=== PATIENT | female | born 1980 | race Caucasian/White ===

== ENCOUNTER 2017-02-20 12:48 | Emergency (ER) | payer MEDICAID ==
[~2017-02-20] VITALS: Wt 75.0 kg
[~2017-02-20 12:48] MED LIST: PREN1TAB62 PO
[2017-02-20] MEDS ORDERED: LIDOCAINE 1% (MDV) 20 ML INJ SC ONE (15:00)
[2017-02-20] MEDS ORDERED: ACETAMINOPHEN 325 MG TAB PO ONE (15:00)
[2017-02-20] MEDS ORDERED: BACI28.34 TOP (15:32)
[2017-02-20 15:58] VITALS: BP 128/69; PULSE 77; RESP 18; TEMP 98
[2017-02-20] MEDS ORDERED: DIPHTH/TET/ACEL PERTUSS (ADULT) 0.5 ML VIAL IM* ONE (16:00)
--- NOTE | 2017-02-20 18:49 | ERD ---
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 The patient is right-hand dominant. The patient is also reportedly 33 weeks . LMP was July 2016. She states she was in the bathtub when she accidentally cut her left fifth finger on a piece of point T Tylenol. Tetanus is not up-to-date. No fevers, chills, tingling in the fingers, loss of consciousness, or other injuries. ROS All systems reviewed and are negative except as per history of present illness. Medications Home Meds Active Scripts Bacitracin* (Bacitracin Zinc Oint*) 28.35 Gm Oint, 1 APPLIC TOP BID, #1 TUB APPLI TO Prov:JUAN KANG PA-C 02/20/17 Reported Medications Vit-Iron Fumarate-FA ( Vitamin Tablet) 1 Each Tablet, 1 TAB PO DAILY, TAB 02/11/15 Allergies Allergies: Coded Allergies: No Known Allergy (Unverified , 02/11/15) PMhx/Soc Hx Alcohol Use: No Hx Substance Use: No Hx Tobacco Use: No Smoking Status: Never smoker Physical Exam Vitals Vital Signs Date Time Temp Pulse Resp B/P Pulse Ox O2 Delivery O2 Flow Rate FiO2 02/20/17 15:58 98.0 77 18 128/69 98 Room Air 02/20/17 12:55 98.0 88 21 133/87 98 Physical Exam Const: Well-appearing, nontoxic female in no acute distress. Head: Atraumatic Eyes: Normal Conjunctiva ENT: Normal External Ears, Nose and Mouth. Neck: Full range of motion..~ No meningismus. Resp: Clear to auscultation bilaterally Cardio: Regular rate and rhythm, no murmurs Abd: Gravid abdomen, soft, non tender, non distended. Normal bowel sounds Skin: There is an approximate 1 cm laceration to the proximal anterior portion of the left fifth finger. Back: No midline or flank tenderness Ext: No cyanosis, or edema Neur: Awake and alert Psych: Normal Mood and Affect Results 24 hrs Current Medications Medications (Trade) Dose Ordered Sig/Kwabena Route PRN Reason Start Time Stop Time Status Last Admin Dose Admin Acetaminophen (Tylenol Tab) 650 mg ONCE ONCE PO 02/20/17 15:00 02/20/17 15:01 DC 02/20/17 15:08 Lidocaine (Xylocaine 1% (Mdv) 20 ml) 20 ml ONCE ONCE SC 02/20/17 15:00 02/20/17 15:01 DC Diphtheria/ Tetanus/Acell Pertussis (Adacel) 0.5 ml ONCE ONCE IM* 02/20/17 16:00 02/20/17 16:00 DC 02/20/17 15:38 Procedures/MDM 36-year-old female presents to the emergency department with complaint of cut to her left fifth finger which occurred at approximately 12:20 PM today. There appears to be no involvement of the tendon or the ligaments. I do not believe that imaging is required at this time. Laceration repair was done by me without incident. The patient is also incidentally 33 weeks , but she has no vaginal bleeding, vaginal cramping, or other complaints. Laceration Repair by me: Anesthesia: 1% lidocaine locally Location: Anterior, proximal portion of the left fifth finger Tendon/Joint/Nerves: No injury Foreign body: None detected after copious irrigation and exploration Technique: 4x4-0 prolene, Simple Interrupted Sutures Complexity: No subcutaneous sutures/mucosal repair/ edge excision Post Closure Length: 1 cm Patient's bleeding was easily controlled in the department and there is no indication of anemia. No evidence of compartment syndrome, neurologic injury, vascular injury, open joint, tendon laceration, or foreign body. Patient is appropriate for outpatient follow up. 48 hour wound check. Scar minimization instructions given. Departure Diagnosis: Primary Impression: Laceration Condition: Fair Patient Instructions: Laceration, Hand Referrals: [facility] YOU HAVE RECEIVED A MEDICAL SCREENING EXAM AND THE RESULTS INDICATE THAT YOU DO NOT HAVE A CONDITION THAT REQUIRES URGENT TREATMENT IN THE EMERGENCY DEPARTMENT. FURTHER EVALUATION AND TREATMENT OF YOUR CONDITION CAN WAIT UNTIL YOU ARE SEEN IN YOUR DOCTORS OFFICE WITHIN THE NEXT 1-2 DAYS. IT IS YOUR RESPONSIBILITY TO MAKE AN APPOINTMENT FOR FOLOW-UP CARE. IF YOU HAVE A PRIMARY DOCTOR --you should call your primary doctor and schedule an appointment IF YOU DO NOT HAVE A PRIMARY DOCTOR YOU CAN CALL OUR PHYSICIAN REFERRAL HOTLINE AT IF YOU CAN NOT AFFORD TO SEE A PHYSICIAN YOU CAN CHOSE FROM THE FOLLOWING COMMUNITY CLINICS [facility] [address] [facility] [address] [facility] [address] [facility] [address] [facility] [place] [address] [facility] [facility] [address] [place] Additional Instructions: Regrese en 7-10 kimball por removar puntadas. No mas mejor en 2-3 kimball, regresar. Mas peor en 24 horas, regresear rapidamente. Ir a doctor primario in 5-7 kimball. Usar instrucciones cuando joselin medicamento. JUAN KANG PA-C Feb 20, 2017 18:49
== END 2017-02-20 15:58 | disposition home or self-care (01) ==
LOC: FTE 12:48
DX: S61.217A Laceration without foreign body of left little finger without damage to nail, initial encounter (principal); W22.8XXA Striking against or struck by other objects, initial encounter; Y92.9 Unspecified place or not applicable; Z23 Encounter for immunization
CPT/HCPCS: 12001; 90471; 90715; Z7502; Z7610

== ENCOUNTER 2017-04-03 14:32 | Inpatient (IN) | payer MEDICAID ==
[~2017-04-03] VITALS: Ht 157.5 cm; Wt 78.2 kg
[~2017-04-03 14:32] MED LIST changes: +BACI28.34 TOP
[2017-04-03 16:09] VITALS: Ht 157.5 cm; Wt 78.2 kg
[2017-04-03 16:15] LABS: BASOPHILS % 0.2 % (0.0-2.0); EOSINOPHILS % 0.8 % (0.0-7.0); HEMATOCRIT 33.9 % (37.0-47.0); HEMOGLOBIN 11.8 g/dl (12.0-16.0); LYMPHOCYTES # 0.8 10^3/ul (0.8-2.9); LYMPHOCYTES % 16.8 % (15.0-51.0); MEAN CORPUSCULAR HEMOGLOBIN 31.7 pg (29.0-33.0); MEAN CORPUSCULAR HGB CONC 34.8 g/dl (32.0-37.0); MEAN CORPUSCULAR VOLUME 91.1 fl (82.0-101.0); MONOCYTE # 0.4 10^3/ul (0.3-0.9); MONOCYTES % 8.4 % (0.0-11.0); NEUTROPHIL # 3.5 10^3/ul (1.6-7.5); NEUTROPHILS % 73.4 % (39.0-77.0); PLATELET COUNT 176 10^3/UL (140-415); RED BLOOD COUNT 3.72 10^6/ul (4.20-5.40); WHITE BLOOD COUNT 4.8 10^3/ul (4.8-10.8)
[2017-04-03] MEDS ORDERED: MISOPROSTOL 200 MCG TAB PR PRN ×2 (16:30→23:00)
[2017-04-03] MEDS ORDERED: CARBOPROST 250 MCG INJ IM PRN ×2 (16:30→23:00)
[2017-04-03] MEDS ORDERED: METHYLERGONOVINE 0.2 MG INJ IM PRN ×2 (16:30→23:00)
[2017-04-03] MEDS ORDERED: OXYTOCIN 30 UNITS/LR 500 ML IV PRN ×2 (16:30→23:00)
[2017-04-03] MEDS ORDERED: CEFAZOLIN 2 GM/50 ML (PMX) 50 ML IV SCH (16:30)
[2017-04-03 16:37] LABS: INR 0.95; PROTIME 12.7 Sec (12.2-14.2)
[2017-04-03 16:38] LABS: PARTIAL THROMBOPLASTIN TIME 27.5 Sec (25.0-35.0)
[2017-04-03] MEDS ORDERED: METOCLOPRAMIDE 10 MG INJ IM ONE (17:30)
[2017-04-03] MEDS ORDERED: CITRIC ACID/NA CITRATE 30 ML CUP PO ONE ×2 (17:30→18:00)
[2017-04-03] MEDS ORDERED: METOCLOPRAMIDE 10 MG INJ ONE (17:39)
[2017-04-03] MEDS ORDERED: CITRIC ACID/NA CITRATE 30 ML CUP ONE (17:40)
[2017-04-03] MEDS ORDERED: LACTATED RINGER'S 1,000 ML IV ONE (17:59)
[2017-04-03] MEDS ORDERED: FAMOTIDINE 20 MG INJ IV ONE (18:00)
[2017-04-03] MEDS ORDERED: METOCLOPRAMIDE 10 MG INJ IV ONE (18:00)
[2017-04-03] MEDS ORDERED: LACTATED RINGER'S 1,000 ML IV SCH (19:16)
[2017-04-03] MEDS ORDERED: morphine SULFATE/PF (10 MG/10 ML) INJ ONE (20:16)
[2017-04-03] MEDS ORDERED: FENTAnyl 50 MCG/ML VIAL ONE (20:16)
[2017-04-03] MEDS ORDERED: PHENYLephrine (100 MCG/ML) 5ML SYG ONE (20:28)
[2017-04-03] MEDS ORDERED: EPHEDrine SULFATE 50 MG/5 ML SYG ONE (20:53)
[2017-04-03] MEDS ORDERED: OXYTOCIN 30 UNITS/LR 500 ML IV ONE ×2 (20:53→21:48)
[2017-04-03] MEDS ORDERED: PROCHLORPERAZINE 10 MG INJ IV PRN (21:00)
[2017-04-03] MEDS ORDERED: KETOROLAC 30 MG INJ IV PRN (21:00)
[2017-04-03] MEDS ORDERED: DIPHENHYDRAMINE 50 MG INJ IV PRN ×2 (21:00)
[2017-04-03] MEDS ORDERED: HYDROmorphONE (0.2 MG/ML) 10ML SYG IV PRN (21:00)
[2017-04-03] MEDS ORDERED: HYDROmorphONE 1 MG/ML SYG IV PRN ×2 (21:00)
[2017-04-03] MEDS ORDERED: NALOXONE (0.4 MG/ML) INJ IV PRN (21:00)
[2017-04-03] MEDS ORDERED: ZOLPIDEM 5 MG TAB PO PRN (21:00)
[2017-04-03] MEDS ORDERED: MEPERIDINE 25 MG INJ IV PRN (21:00)
[2017-04-03] MEDS ORDERED: FENTAnyl 50 MCG/ML VIAL IV PRN (21:00)
[2017-04-03] MEDS ORDERED: ONDANSETRON 4 MG INJ IV PRN ×2 (21:00)
--- NOTE | 2017-04-03 21:40 | PREOPHP ---
DATE OF ADMISSION: 04/03/2017 HISTORY OF PRESENT ILLNESS: A 36-year-old female, 4, para 3, estimated date of delivery 04/10/2017 at 39 weeks gestation admitted for repeat section. Also, the patient desired surgical sterilization. PAST MEDICAL HISTORY: Unremarkable. PAST SURGICAL HISTORY: section. ALLERGIES: NO KNOWN ALLERGIES. FAMILY HISTORY: Noncontributory. PHYSICAL EXAMINATION: GENERAL APPEARANCE: The patient is afebrile. VITAL SIGNS: Stable. HEENT: Within normal limits. ABDOMEN: Soft, nontender, and gravid. NEUROLOGIC: Within normal limits. IMPRESSION: 1. at 39 weeks with previous section. The patient does not desire a trial of labor. 2. Voluntary sterilization. PLAN: Repeat section and bilateral tubal ligation. Risks, benefits, and alternatives of the procedures were explained to the patient. The patient has been counseled about all of her contraceptive options including all methods of sterilization. It was explained to the patient that with bilateral tubal ligation there is a chance of failure resulting in ectopic and/or intrauterine . After counseling the patient said she understood and gave full consent for the procedures. Dictated By: Keyon Marrero MD /liane/finesse /Document#: [id number]
[2017-04-03] MEDS ORDERED: OXYTOCIN 30 UNITS/LR 500 ML IV SCH (22:00)
[2017-04-03] MEDS: OXYTOCIN 30 UNITS/LR 500 ML IV SCH (22:51)
[2017-04-03] MEDS: LACTATED RINGER'S 1,000 ML IV SCH (22:51)
[2017-04-03] MEDS ORDERED: LANOLIN 7 GM TUBE TOP PRN (23:00)
[2017-04-03] MEDS ORDERED: OXYCODONE/ACETAMINOPHEN (5/325) TAB PO PRN (23:00)
[2017-04-03] MEDS: KETOROLAC 30 MG INJ IV PRN (23:47)
[2017-04-04 00:30] VITALS: BP 122/64; PULSE 59; RESP 18
[2017-04-04] MEDS: OXYTOCIN 30 UNITS/LR 500 ML IV SCH (03:15)
[2017-04-04 04:00] VITALS: BP 103/65; PULSE 69; RESP 18
[2017-04-04] MEDS: KETOROLAC 30 MG INJ IV PRN ×3 (05:40→18:23)
--- NOTE | 2017-04-04 05:58 | OPR ---
DATE OF OPERATION: 04/03/2017 PREOPERATIVE DIAGNOSIS: at 39 weeks with previous section, voluntary sterilization. POSTOPERATIVE DIAGNOSIS: at 39 weeks with previous section, voluntary sterilization. OPERATION PERFORMED: 1. Repeat low transverse section. 2. Bilateral tubal ligation. SURGEON: Keyon Marrero MD HEALTH PRACTICE MANAGER: ANESTHESIA: Spinal. ANESTHESIOLOGIST: OPERATIVE PROCEDURE: Patient was taken to the operating room, placed on the operating table. After successful spinal anesthesia was given, the patient was placed in supine position. The area was prepared and draped in the usual sterile fashion. Spinal anesthesia was tested and was satisfactory. Using scalpel, Pfannenstiel incision was made about 2 fingerbreadths above the symphysis pubis. The incision was carried to the fascia. The fascia was incised and extended bilaterally with the Cavazos scissors. Trocars were used to separate the fascia from the muscle. The muscle was dissected down to peritoneum. The peritoneum was secured with 2 Breanna's and incised with Metzenbaum scissors. Using a scalpel, a small transverse incision was made on the lower segment of the uterus. Upon entering the uterine cavity bandage scissors were inserted to extend the incision bilaterally curved up. The baby was delivered from cephalic presentation. After suctioned clear of amniotic fluid the baby was handed off to the team in attendance. Apgars were 8 and 9. The placenta was delivered without difficulty. The uterus was closed with number 1 Monocryl continuous lock. After assuring hemostasis, both ovaries and tubes were inspected. All looked normal. The right fallopian tube was grasped with [place] clamp. Using 0 plain suture ligature, a 5 cm segment of the right fallopian tube was doubly ligated. Using Metzenbaum scissors, a portion of the right fallopian tube above the ligated area was excised and sent to Pathology. The same procedure was repeated on the left fallopian tube. After assuring hemostasis, the peritoneal cavity was irrigated with warm saline. The peritoneum was closed with 2-0 Vicryl continuous, the muscle was reapproximated with 0 chromic. The fascia was closed with number 1 Vicryl continuous in 2 segments. The subcutaneous tissue was reapproximated with 2-0 plain. The skin was closed with mercy. ESTIMATED BLOOD LOSS: 700 mL. COUNTS: All counts were correct. Dictated By: Keyon Marrero MD /liane/aimee /Document#: [id number]
[2017-04-04 08:00] VITALS: BP 105/72; PULSE 65; RESP 16
[2017-04-04] MEDS: SENNA/DOCUSATE NA (8.6MG/50MG) TAB PO SCH ×2 (08:22→22:12)
[2017-04-04] MEDS: LACTATED RINGER'S 1,000 ML IV SCH ×2 (08:23→16:22)
[2017-04-04 08:46] LABS: BASOPHILS % 0.2 % (0.0-2.0); EOSINOPHILS % 0.3 % (0.0-7.0); HEMATOCRIT 31.2 % (37.0-47.0); HEMOGLOBIN 10.4 g/dl (12.0-16.0); LYMPHOCYTES # 0.6 10^3/ul (0.8-2.9); MEAN CORPUSCULAR HGB CONC 33.3 g/dl (32.0-37.0); MEAN CORPUSCULAR VOLUME 92.9 fl (82.0-101.0); MEAN PLATELET VOLUME 10.3 fl (7.4-10.4); MONOCYTE # 0.5 10^3/ul (0.3-0.9); NEUTROPHIL # 4.6 10^3/ul (1.6-7.5); NEUTROPHILS % 80.2 % (39.0-77.0); PLATELET COUNT 144 10^3/UL (140-415); RED BLOOD COUNT 3.36 10^6/ul (4.20-5.40); RED CELL DISTRIBUTION WIDTH 13.2 % (11.5-14.5); WHITE BLOOD COUNT 5.7 10^3/ul (4.8-10.8)
[2017-04-04 12:30] VITALS: BP 90/51; PULSE 66; RESP 16
[2017-04-04] MEDS: IBUPROFEN 800 MG TAB PO SCH ×2 (14:00→22:00)
[2017-04-04 16:15] VITALS: BP 112/64; PULSE 67; RESP 16
[2017-04-04 20:00] VITALS: BP 107/86; PULSE 66; RESP 17
--- NOTE | 2017-04-04 20:28 | QN ---
Documentation Comment No complaint Afebrile VSS Abdomen soft ND POD #1 Stable Ambulate Advance diet. GOMEZ FERNANDEZ MD Apr 04, 2017 20:28
[2017-04-04] MEDS: OXYCODONE/ACETAMINOPHEN (5/325) TAB PO PRN (22:12)
--- NOTE | 2017-04-05 03:02 | QN ---
Documentation Comment No complaint Afebrile VSS Abdomen soft POD #2 stable Continue present care. GOMEZ FERNANDEZ MD Apr 05, 2017 03:02
[2017-04-05 04:00] VITALS: BP 115/72; PULSE 73; RESP 18
[2017-04-05] MEDS: IBUPROFEN 800 MG TAB PO SCH ×3 (06:31→21:43)
[2017-04-05] MEDS: SENNA/DOCUSATE NA (8.6MG/50MG) TAB PO SCH ×2 (09:16→21:43)
[2017-04-05 09:22] VITALS: BP 115/63; PULSE 73; RESP 19
[2017-04-05 16:03] VITALS: BP 107/66; PULSE 73; RESP 18
[2017-04-05 20:00] VITALS: BP 117/75; PULSE 75; RESP 18
[2017-04-05] MEDS: OXYCODONE/ACETAMINOPHEN (5/325) TAB PO PRN (20:10)
[2017-04-06 04:00] VITALS: BP 108/75; PULSE 63; RESP 18
[2017-04-06] MEDS: IBUPROFEN 800 MG TAB PO SCH ×2 (05:45→13:54)
[2017-04-06 08:30] VITALS: BP 112/71; PULSE 62; RESP 14
[2017-04-06] MEDS ORDERED: DIPHTH/TET/ACEL PERTUSS (ADULT) 0.5 ML VIAL IM* ONE (09:00)
[2017-04-06] MEDS: SENNA/DOCUSATE NA (8.6MG/50MG) TAB PO SCH (09:33)
[2017-04-06] MEDS ORDERED: IBUP800T25 PO (15:05)
--- NOTE | 2017-04-06 15:06 | DS ---
Date/Time of Note Date/Time of Note DATE: 04/06/17 TIME: 15:06 Obstetrical Discharge Record Final Diagnosis Final Diagnosis: Term delivered Section Section: Repeat Condition on Discharge Physical Assessment Voiding: Yes Bowel Movement: Yes Breast: Soft, non-tender Fundus: Firm Abdomen and Incision: Incision intact Calf Tenderness: No Patient Condition: Stable GOMEZ FERNANDEZ MD Apr 06, 2017 15:06
[2017-04-06 16:00] VITALS: BP 125/78; PULSE 77; RESP 16
== END 2017-04-06 17:30 | disposition home or self-care (01) | DRG 766 ==
LOC: L-D 14:50 → PP1 04-04 00:33
PROVIDERS: ADMIT Obstetrics & Gynecology; ATTEND Obstetrics & Gynecology
PROC: 0UL70ZZ Occlusion of Bilateral Fallopian Tubes, Open Approach (ICD-10-PCS; 2017-04-03)
PROC: 10D00Z1 Extraction of Products of Conception, Low, Open Approach (ICD-10-PCS; principal; 2017-04-03 18:45)
DX: O34.211 Maternal care for low transverse scar from previous cesarean delivery (principal); Z30.2 Encounter for sterilization; Z3A.39 39 weeks gestation of pregnancy; Z37.0 Single live birth
CPT/HCPCS: 85025; 85610; 85730; 86592; 86850; 86900; 86901; 87340; 88302; 90715; 94760; 99464; J0690; J1885; J2274; J2370; J2405; J2590; J2765; J3010; J7120

== ENCOUNTER 2017-05-28 14:27 | Inpatient (IN) | payer MEDICAID ==
[~2017-05-28] VITALS: Ht 154.9 cm; Wt 70.2 kg
[~2017-05-28 14:27] MED LIST changes: -BACI28.34 TOP; +IBUP800T25 PO
[2017-05-28] MEDS ORDERED: ONDANSETRON 4 MG INJ IV STA ×2 (15:13→17:11)
[2017-05-28] MEDS ORDERED: KETOROLAC 30 MG INJ IV STA (15:13)
[2017-05-28] MEDS ORDERED: SOD CHLORIDE 0.9% 1,000 ML IV STA (15:13)
[2017-05-28 15:49] LABS: EOSINOPHILS % 0.5 % (0.0-7.0); HEMATOCRIT 38.8 % (37.0-47.0); HEMOGLOBIN 12.8 g/dl (12.0-16.0); LYMPHOCYTES # 0.9 10^3/ul (0.8-2.9); LYMPHOCYTES % 11.6 % (15.0-51.0); MEAN CORPUSCULAR HEMOGLOBIN 29.8 pg (29.0-33.0); MEAN CORPUSCULAR VOLUME 90.2 fl (82.0-101.0); MEAN PLATELET VOLUME 9.4 fl (7.4-10.4); MONOCYTE # 0.5 10^3/ul (0.3-0.9); MONOCYTES % 6.1 % (0.0-11.0); NEUTROPHIL # 6.5 10^3/ul (1.6-7.5); NEUTROPHILS % 81.4 % (39.0-77.0); PLATELET COUNT 241 10^3/UL (140-415); RED CELL DISTRIBUTION WIDTH 12.3 % (11.5-14.5)
[2017-05-28 15:59] LABS: ADD UMIC YES; UR ASCORBIC ACID NEGATIVE (NEGATIVE); UR BACTERIA FEW /HPF (NONE SEEN); UR BILIRUBIN (Dip) NEGATIVE (NEGATIVE); UR BLOOD (Dip) NEGATIVE (NEGATIVE); UR CLARITY SLIGHTLY CLOUDY (CLEAR); UR COLOR AMBER (YELLOW); UR GLUCOSE (Dip) NEGATIVE (NEGATIVE); UR KETONES (Dip) NEGATIVE (NEGATIVE); UR LEUKOCYTE ESTERASE (Dip) 1+ Leu/ul (NEGATIVE); UR MUCUS MANY /HPF (NONE SEEN); UR NITRITE (Dip) NEGATIVE (NEGATIVE); UR RBC 17 /HPF (0-5); UR SPECIFIC GRAVITY (Dip) 1.028 (1.003-1.030); UR SQUAMOUS EPITHELIAL CELL FEW /HPF (FEW); UR TOTAL PROTEIN (Dip) 1+ mg/dl (NEGATIVE); UR UROBILINOGEN (Dip) 1+ mg/dL (NEGATIVE)
--- NOTE | 2017-05-28 16:03 | RADRPT ---
PROCEDURE: US Abdomen Limited . CLINICAL INDICATION: Abdominal pain TECHNIQUE: Multiple real-time images were acquired of the patient's right upper quadrant abdomen u tilizing a high resolution transducer. COMPARISON: None FINDINGS: The liver measures 12.2 cm and demonstrates a normal echogenicity. The gallbladder is filled with a moderate amount of bile. Multiple calcified stones are seen in the gallbladder. The largest measure s up to approximately 2.4 cm in the gallbladder neck. The gallbladder wall is not thickened at 2.8 m m. No pericholecystic fluid is noted. The common bile duct measures 6.2 mm in diameter. The visuali zed portions of the proximal pancreas are unremarkable. The tail of the pancreas is not well visuali zed. Antegrade flow is seen in the portal vein. Right kidney measures 9.0 cm. Right kidney demonstrates a normal echogenicity. No hydronephrosis, masses or stones are noted. IMPRESSION: Cholelithiasis. Mildly dilated common bile duct. Distal common bile duct obstruction is not excluded. If further baudilio racterization is needed MRCP or ERCP is recommended. Tail of the pancreas not well visualized. If characterization of this structure is needed repeat exa m or CT/MRI is recommended. RPTAT: AA .Jordan Gonzalez MD, Date Time Electronically viewed and signed by .Jordan Gonzalez MD, on 05/28/2017 16:02 .P/
[2017-05-28 16:10] LABS: ALBUMIN 4.4 g/dl (3.3-4.9); ALBUMIN/GLOBULIN RATIO 1.12; BILIRUBIN,INDIRECT 0.6 mg/dl (0-1.1); BILIRUBIN,TOTAL 0.6 mg/dl (0.2-1.3); CALCIUM 9.5 mg/dl (8.4-10.2); CREATININE 0.63 mg/dl (0.44-1.00); TOTAL PROTEIN 8.3 g/dl (6.1-8.1)
--- NOTE | 2017-05-28 16:17 | RADRPT ---
PROCEDURE: US Pelvis. CLINICAL INDICATION: Pelvic pain. Irregular menses. TECHNIQUE: The pelvis was evaluated with transabdominal and transvaginal sonography in the axial a nd sagittal planes. COMPARISON: Pelvic ultrasound dated 11/23/2013. FINDINGS: The uterus is retroverted measuring 8.1 x 4.5 x 7.2 cm. There is no uterine enlargement or mass. The endometrium is normal measuring 5.8 mm. The ovaries are not visualized. There is no other pelvic ma ss or free fluid. IMPRESSION: 1. Unremarkable appearing retroverted uterus. 2. Normal endometrium. 3. Ovaries not visualized. 4. Otherwise normal pelvic ultrasound. RPTAT: QQ .Michael Lowry MD, MD Date Time Electronically viewed and signed by .Michael Lowry MD, on 05/28/2017 16:17 .R/
[2017-05-28] MEDS ORDERED: HYDROmorphONE 1 MG/ML SYG IV STA (17:11)
--- NOTE | 2017-05-28 19:15 | ERA ---
ER Documentation Chief Complaint Date/Time DATE: 05/28/17 TIME: 19:12 Chief Complaint ap with nausea since last night HPI Is a 36-year-old female who is complaining of 2 days of epigastric pain with nausea vomiting. She is just had a delivery in the beginning of April she thinks she has gallstones as diagnosis before. Her vomit is nonbilious nonbloody. No diarrhea. The pain is described as sharp and crampy in the upper quadrant and radiates to the back some. Pain was severe and is currently mild to moderate. ROS All systems reviewed and are negative except as per history of present illness. Medications Home Meds Active Scripts Ibuprofen* (Ibuprofen*) 800 Mg Tablet, 800 MG PO Q8 Y for PAIN, #30 TAB Prov:GOMEZ FERNANDEZ MD 04/06/17 Reported Medications Vit-Iron Fumarate-FA ( Vitamin Tablet) 1 Each Tablet, 1 TAB PO DAILY, TAB 02/11/15 Allergies Allergies: Coded Allergies: No Known Allergy (Unverified , 02/11/15) PMhx/Soc Medical and Surgical Hx: pt denies Medical Hx, pt denies Surgical Hx Hx Alcohol Use: No Hx Substance Use: No Hx Tobacco Use: No FmHx Family History: No coronary disease Physical Exam Vitals Vital Signs Date Time Temp Pulse Resp B/P Pulse Ox O2 Delivery O2 Flow Rate FiO2 05/28/17 14:31 98.3 64 18 115/64 99 Physical Exam Const: Well-developed, well-nourished Head: Atraumatic, normocephalic Eyes: Normal Conjunctiva, PERRLA, EOMI, normal sclera, no nystagmus ENT: Normal External Ears, Nose and Mouth, moist mucus membranes. Neck: Full range of motion. No meningismus, no lymphadenopathy. Resp: Clear to auscultation bilaterally, no wheezing, rhonchi, rales Cardio: Regular rate and rhythm, no murmurs, S1 S2 present Abd: Soft, epigastric and right upper quadrant tenderness, there is also some mild tenderness in the right mid abdomen non distended. Normal bowel sounds, no guarding or rebound, no pulsitile abdominal masses or bruits Skin: No petechiae or rashes, no ecchymosis , no maculopapular rash Back: No midline or flank tenderness Ext: No cyanosis, or edema, FROM x 4, normal inspection, neurovascularly intact x 4 Neur: Awake and alert, STR 5/5 x 4, sensation intact x 4, no focal findings, cerebellum intact Psych: Normal Mood and Affect Result Diagram: 05/28/17 1535 05/28/17 1535 Results 24 hrs Laboratory Tests Test 05/28/17 15:35 White Blood Count 8.010^3/ul Red Blood Count 4.3010^6/ul Hemoglobin 12.8g/dl Hematocrit 38.8% Mean Corpuscular Volume 90.2fl Mean Corpuscular Hemoglobin 29.8pg Mean Corpuscular Hemoglobin Concent 33.0g/dl Red Cell Distribution Width 12.3% Platelet Count 99974^3/UL Mean Platelet Volume 9.4fl Neutrophils % 81.4% Lymphocytes % 11.6% Monocytes % 6.1% Eosinophils % 0.5% Basophils % 0.0% Nucleated Red Blood Cells % 0.0/100WBC Neutrophils # 6.510^3/ul Lymphocytes # 0.910^3/ul Monocytes # 0.510^3/ul Eosinophils # 0.010^3/ul Basophils # 0.010^3/ul Nucleated Red Blood Cells # 0.010^3/ul Urine Color TIANA Urine Clarity SLIGHTLY CLOUDY Urine pH 8.0 Urine Specific [place] 1.028 Urine Ketones NEGATIVEmg/dL Urine Nitrite NEGATIVEmg/dL Urine Bilirubin NEGATIVEmg/dL Urine Urobilinogen 1+mg/dL Urine Leukocyte Esterase 1+Emily/ul Urine Microscopic RBC 17/HPF Urine Microscopic WBC 4/HPF Urine Squamous Epithelial Cells FEW/HPF Urine Bacteria FEW/HPF Urine Mucus MANY/HPF Urine Hemoglobin NEGATIVEmg/dL Urine Glucose NEGATIVEmg/dL Urine Total Protein 1+mg/dl Sodium Level 142mmol/L Potassium Level 4.0mmol/L Chloride Level 104mmol/L Carbon Dioxide Level 26mmol/L Anion Gap 16 Blood Urea Nitrogen 12mg/dl Creatinine 0.63mg/dl Glucose Level 89mg/dl Calcium Level 9.5mg/dl Total Bilirubin 0.6mg/dl Direct Bilirubin 0.00mg/dl Indirect Bilirubin 0.6mg/dl Aspartate Amino Transf (AST/SGOT) 121IU/L Alanine Aminotransferase (ALT/SGPT) 111IU/L Alkaline Phosphatase 110IU/L Total Protein 8.3g/dl Albumin 4.4g/dl Globulin 3.90g/dl Albumin/Globulin Ratio 1.12 Lipase 30432Y/L Beta HCG, Quantitative < 2.4mIU/ml Current Medications Medications (Trade) Dose Ordered Sig/Kwabena Route PRN Reason Start Time Stop Time Status Last Admin Dose Admin Sodium Chloride (NS) 1,000 ml @ 1,000 mls/hr Q1H STAT IV 05/28/17 15:13 05/28/17 16:12 DC 05/28/17 15:45 Ondansetron HCl (Zofran Inj) 4 mg ONCE STAT IV 05/28/17 15:13 05/28/17 15:15 DC 05/28/17 15:45 Ketorolac Tromethamine (Toradol) 30 mg ONCE STAT IV 05/28/17 15:13 05/28/17 15:15 DC 05/28/17 15:45 Hydromorphone HCl (Dilaudid) 1 mg ONCE STAT IV 05/28/17 17:11 05/28/17 17:12 DC 05/28/17 18:16 Ondansetron HCl 4 mg 4 mg ONCE STAT IV 05/28/17 17:11 05/28/17 17:12 DC 05/28/17 18:17 Sodium Chloride (NS) 1,000 ml @ 80 mls/hr [id number] IV 05/28/17 19:09 05/29/17 07:38 Ondansetron HCl (Zofran Inj) 4 mg BRIDGE ORDER PRN IV NAUSEA AND/OR VOMITING 05/28/17 19:30 05/29/17 19:29 Acetaminophen (Tylenol Tab) 650 mg ER BRIDGE PRN PO MILD PAIN/FEVER 05/28/17 19:30 05/29/17 19:29 Procedures/MDM PROCEDURE: US Abdomen Limited . CLINICAL INDICATION: Abdominal pain TECHNIQUE: Multiple real-time images were acquired of the patient's right upper quadrant abdomen utilizing a high resolution transducer. COMPARISON: None FINDINGS: The liver measures 12.2 cm and demonstrates a normal echogenicity. The gallbladder is filled with a moderate amount of bile. Multiple calcified stones are seen in the gallbladder. The largest measures up to approximately 2.4 cm in the gallbladder neck. The gallbladder wall is not thickened at 2.8 mm. No pericholecystic fluid is noted. The common bile duct measures 6.2 mm in diameter. The visualized portions of the proximal pancreas are unremarkable. The tail of the pancreas is not well visualized. Antegrade flow is seen in the portal vein. Right kidney measures 9.0 cm. Right kidney demonstrates a normal echogenicity. No hydronephrosis, masses or stones are noted. IMPRESSION: Cholelithiasis. Mildly dilated common bile duct. Distal common bile duct obstruction is not excluded. If further characterization is needed MRCP or ERCP is recommended. Tail of the pancreas not well visualized. If characterization of this structure is needed repeat exam or CT/MRI is recommended. RPTAT: AA .Jordan Gonzalez MD, Date Time Electronically viewed and signed by .Jordan Gonzalez MD, on 05/28/2017 16:02 .P/ CC: LOUIS CLARK PA-C Has elevated liver function test and lipase of 14,000. Note The ultrasound shows common bile duct 6.2. Patient has gallstone pancreatitis we will admit. I spoke with Dr. Bindu ding and Dr. Bain's consultation. Patient will need MRCP Departure Diagnosis: Primary Impression: Gallstone pancreatitis Condition: Stable CAMILA TRIANA DO May 28, 2017 19:15
[2017-05-28] MEDS ORDERED: ACETAMINOPHEN 325 MG TAB PO PRN (19:30)
[2017-05-28] MEDS ORDERED: ONDANSETRON 4 MG INJ IV PRN (19:30)
[2017-05-28 20:45] VITALS: BP 107/63; RESP 20
[2017-05-28] MEDS: SOD CHLORIDE 0.9% 1,000 ML IV SCH ×2 (21:16→21:54)
[2017-05-28 21:30] VITALS: Ht 154.9 cm; Wt 70.2 kg
[2017-05-28] MEDS: morphine 4 MG/ML VIAL IV PRN (21:53)
[2017-05-28] MEDS: DEXTROSE 5%-0.45% NACL 1,000 ML IV SCH (21:57)
[2017-05-28 23:12] LABS: BASOPHILS % 0.2 % (0.0-2.0); EOSINOPHILS # 0.1 10^3/ul (0.0-0.5); EOSINOPHILS % 1.6 % (0.0-7.0); HEMATOCRIT 33.5 % (37.0-47.0); HEMOGLOBIN 10.9 g/dl (12.0-16.0); LYMPHOCYTES # 1.2 10^3/ul (0.8-2.9); LYMPHOCYTES % 18.8 % (15.0-51.0); MEAN CORPUSCULAR HEMOGLOBIN 29.5 pg (29.0-33.0); MEAN CORPUSCULAR HGB CONC 32.5 g/dl (32.0-37.0); MEAN CORPUSCULAR VOLUME 90.5 fl (82.0-101.0); MEAN PLATELET VOLUME 9.2 fl (7.4-10.4); MONOCYTE # 0.5 10^3/ul (0.3-0.9); MONOCYTES % 7.3 % (0.0-11.0); NEUTROPHIL # 4.6 10^3/ul (1.6-7.5); NEUTROPHILS % 71.8 % (39.0-77.0); PLATELET COUNT 187 10^3/UL (140-415); RED CELL DISTRIBUTION WIDTH 12.3 % (11.5-14.5); WHITE BLOOD COUNT 6.4 10^3/ul (4.8-10.8)
--- NOTE | 2017-05-28 23:15 | CONS ---
Date/Time of Note Date/Time of Note DATE: 05/28/17 TIME: 23:02 Assessment/Plan Assessment/Plan Chief Complaint/Hosp Course 1. Abdominal pain with Cholelithiasis and Dilated CBD (? Choledocholithiasis) and Pancreatitis -npo -ivf -abx -mrcp -gi consult -eventual lap branden 2. Dilated CBD with Transaminitis, ? Choledocholithiasis -as above 3. Pancreatitis probably 2nd Gallstones -as above 4. BMI 29 -diet and exercise optimization Thank you very much for consulting me in this patient's care, Problems: Consultation Date/Type/Reason Admit Date/Time May 28, 2017 at 19:10 Date of Consultation: May 28, 2017 Type of Consultation: Gen Surgical Reason for Consultation Abdominal pain Dilated CBD Cholelithiasis Transaminitis Pancreatitis Recent cesarian BMI 29 Referring Provider: CAMILA TRIANA DO Hx of Present Illness Brynn Segal is a 36-year-old female with know gallstones and s/p c/s 04/18 who is complaining of 2 days of epigastric & rup sharp & crampy pain with radiation to her back. She has nausea and nonbloody nonbilious vomiting. Denies any bowel changes. No color change of skin, eyes, urine, or stool. No dysuria or vaginal dc. No trauma or sick contacts. Her w/u has identified gallstone with dilated cbd and abnl lfts and pancreatic enzymes. She is being admitted and surgical consult is obtained for further evaluation and treatment. Constitutional: No chills, No diaphoresis, No febrile Eyes: No discharge, No redness ENT: No congestion, No dysphagia, No sore throat Respiratory: No cough, No shortness of breath Cardiovascular: No chest pain, No edema, No lightheadedness Gastrointestinal: flatus, nausea, passing stool, vomiting, No blood, No diarrhea Musculoskeletal: back pain, No bone/joint pain, No neck pain, No restricted range of motion Skin: No bruising, No erythema, No pruritis Neurologic: No confusion, No headache, No syncope Endocrine: No polydypsia, No polyuria Lymphatic: No adenopathy, No tender nodes Psychological: nl mood/affect, No confusion Immunologic: No pruritis, No rhinitis Past Medical History Abdominal pain Dilated CBD Cholelithiasis Transaminitis Pancreatitis Recent cesarian BMI 29 Past Surgical History c/s and tubal ligation 04/18 Family History Significant Family History: heart disease Social History 4 kids Alcohol Use: occasionally Smoking Status: Never smoker Drug Use: none Exam/Review of Systems Vital Signs Vitals Vital Signs Date Time Temp Pulse Resp B/P Pulse Ox O2 Delivery O2 Flow Rate FiO2 05/28/17 20:21 60 101/64 97 Room Air 05/28/17 14:31 98.3 18 Exam Constitutional: alert, obese, oriented, No distress Psych: nl mood/affect, No anxiety, No confusion Head: atraumatic, normocephalic, No hematomas Eyes: EOMI, PERRL, nl sclera, No icteric ENMT: mucosa pink and moist, nl external ears & nose, nl lips & teeth Neck: non-tender, supple, No jvd Respiratory: normal air movement, No congested cough, No labored breathing Cardiovascular: regular rate and rhythm, No edema Gastrointestinal: soft, tender (min epigastric and ruq without murphys), No distended, No rebound or guarding Musculoskeletal: nl extremities to inspection, nl gait and stance, No joint tenderness Extremities: normal pulses, No calf tenderness, No cyanosis, No edema Neurological: nl mental status, nl speech, nl strength Skin: nl turgor, No diaphoresis, No ecchymosis, No rash or lesions Lymph: nl lymph nodes, nontender Results Result Diagram: 05/28/17 1535 05/28/17 1535 Results 24 hrs Laboratory Tests Test 05/28/17 15:35 White Blood Count 8.0 # Red Blood Count 4.30 # Hemoglobin 12.8 # Hematocrit 38.8 # Mean Corpuscular Volume 90.2 Mean Corpuscular Hemoglobin 29.8 Mean Corpuscular Hemoglobin Concent 33.0 Red Cell Distribution Width 12.3 Platelet Count 241 # Mean Platelet Volume 9.4 Neutrophils % 81.4 H Lymphocytes % 11.6 L Monocytes % 6.1 Eosinophils % 0.5 Basophils % 0.0 Nucleated Red Blood Cells % 0.0 Neutrophils # 6.5 Lymphocytes # 0.9 Monocytes # 0.5 Eosinophils # 0.0 Basophils # 0.0 Nucleated Red Blood Cells # 0.0 Urine Color TIANA Urine Clarity SLIGHTLY CLOUDY A Urine pH 8.0 Urine Specific [place] 1.028 Urine Ketones NEGATIVE Urine Nitrite NEGATIVE Urine Bilirubin NEGATIVE Urine Urobilinogen 1+ H Urine Leukocyte Esterase 1+ H Urine Microscopic RBC 17 H Urine Microscopic WBC 4 Urine Squamous Epithelial Cells FEW Urine Bacteria FEW A Urine Mucus MANY A Urine Hemoglobin NEGATIVE Urine Glucose NEGATIVE Urine Total Protein 1+ H Sodium Level 142 Potassium Level 4.0 Chloride Level 104 Carbon Dioxide Level 26 Anion Gap 16 Blood Urea Nitrogen 12 Creatinine 0.63 Glucose Level 89 Calcium Level 9.5 Total Bilirubin 0.6 Direct Bilirubin 0.00 Indirect Bilirubin 0.6 Aspartate Amino Transf (AST/SGOT) 121 H Alanine Aminotransferase (ALT/SGPT) 111 H Alkaline Phosphatase 110 Total Protein 8.3 H Albumin 4.4 Globulin 3.90 H Albumin/Globulin Ratio 1.12 Lipase 24129 H Beta HCG, Quantitative < 2.4 Medications Medications Current Medications Sodium Chloride (NS) 1,000 ml @ 80 mls/hr [id number] IV Last administered on 05/28 21:16; Admin Dose 80 MLS/HR; Start 05/28/17 at 19:09; Stop 05/29/17 at 07: 38 Ondansetron HCl (Zofran Inj) 4 mg Q6H PRN IV NAUSEA AND/OR VOMITING; Start at 21:30 Morphine Sulfate 4 mg 4 mg Q4H PRN IV PAIN LEVEL 6-10 Last administered on 05/28 21:53; Admin Dose 4 MG; Start 05/28/17 at 21:30 Dextrose/Sodium Chloride (D5-1/2ns) 1,000 ml @ 100 mls/hr Q10H IV Last administered on 05/28/17 21:57; Admin Dose 100 MLS/HR; Start 05/28/17 at 21:30 FIDEL BRAGA MD May 28, 2017 23:14
[2017-05-28 23:41] LABS: ALBUMIN 3.6 g/dl (3.3-4.9); ALBUMIN/GLOBULIN RATIO 1.16; BILIRUBIN,INDIRECT 0.5 mg/dl (0-1.1); BILIRUBIN,TOTAL 0.5 mg/dl (0.2-1.3); CALCIUM 8.6 mg/dl (8.4-10.2); CREATININE 0.53 mg/dl (0.44-1.00); MAGNESIUM 1.7 mg/dl (1.7-2.5); PHOSPHORUS 4.4 mg/dl (2.5-4.9); POTASSIUM 3.8 mmol/L (3.5-5.1); TOTAL PROTEIN 6.7 g/dl (6.1-8.1)
[2017-05-29] MEDS: morphine 4 MG/ML VIAL IV PRN ×3 (02:36→15:34)
[2017-05-29 02:42] VITALS: BP 106/64; RESP 19
[2017-05-29 05:33] LABS: BASOPHILS % 0.2 % (0.0-2.0); EOSINOPHILS # 0.2 10^3/ul (0.0-0.5); EOSINOPHILS % 2.8 % (0.0-7.0); HEMATOCRIT 34.8 % (37.0-47.0); HEMOGLOBIN 11.2 g/dl (12.0-16.0); LYMPHOCYTES # 1.5 10^3/ul (0.8-2.9); LYMPHOCYTES % 27.8 % (15.0-51.0); MEAN CORPUSCULAR HEMOGLOBIN 29.2 pg (29.0-33.0); MEAN CORPUSCULAR HGB CONC 32.2 g/dl (32.0-37.0); MEAN CORPUSCULAR VOLUME 90.9 fl (82.0-101.0); MEAN PLATELET VOLUME 9.5 fl (7.4-10.4); MONOCYTE # 0.4 10^3/ul (0.3-0.9); MONOCYTES % 7.9 % (0.0-11.0); NEUTROPHIL # 3.2 10^3/ul (1.6-7.5); NEUTROPHILS % 60.7 % (39.0-77.0); PLATELET COUNT 206 10^3/UL (140-415); RED BLOOD COUNT 3.83 10^6/ul (4.20-5.40); RED CELL DISTRIBUTION WIDTH 12.3 % (11.5-14.5); WHITE BLOOD COUNT 5.3 10^3/ul (4.8-10.8)
[2017-05-29 06:12] LABS: ALBUMIN 3.7 g/dl (3.3-4.9); ALBUMIN/GLOBULIN RATIO 1.15; BILIRUBIN,INDIRECT 0.5 mg/dl (0-1.1); BILIRUBIN,TOTAL 0.5 mg/dl (0.2-1.3); CALCIUM 8.8 mg/dl (8.4-10.2); CREATININE 0.61 mg/dl (0.44-1.00); POTASSIUM 3.7 mmol/L (3.5-5.1); TOTAL PROTEIN 6.9 g/dl (6.1-8.1)
--- NOTE | 2017-05-29 06:40 | HP ---
Date/Time of Note Date/Time of Note DATE: 05/29/17 TIME: 06:30 Assessment/Plan VTE Prophylaxis VTE Prophylaxis Intervention: SCD's Lines/Catheters IV Catheter Type (from Nrsg): Peripheral IV Assessment/Plan Assessment/Plan 1. Gallstone pancreatitis -Keep n.p.o. with IV fluid -MRCP -GI and surgery consult -Pain management 2. Cholelithiasis with likely choledocholithiasis -See #1 3. Abnormal LFTs, secondary to above -See above for management -Check a.m. lab HPI/ROS Admit Date/Time Admit Date/Time May 28, 2017 at 19:10 Hx of Present Illness This is a 36-year-old female with history of and bilateral tubal ligation 5 weeks ago and gallstone diagnosed 8 years ago who presented to the ER complaining of abdominal pain of 2 days' duration. Pain is diffuse but mostly localized in the epigastric and right upper quadrant area. She reported multiple episodes of nonbilious nonbloody vomiting. Denied fever or chills. Last time she had abdominal pain was 8 years ago. At that time she said she was told she had gallstones. No surgical intervention. She said she has not had abdominal pain until this current episode. When she presented to the ER, lipase was found to be 14,000, AST 121 and ALT 111. RUQ ultrasound showed cholelithiasis and mildly dilated common bile duct. Distal common bile duct obstruction is not excluded. ROS Eyes: No discharge, No redness ENT: No congestion, No dysphagia, No sore throat Respiratory: No cough, No shortness of breath Cardiovascular: No chest pain, No edema, No lightheadedness Gastrointestinal: flatus, nausea, passing stool, vomiting, No blood, No diarrhea Musculoskeletal: back pain, No bone/joint pain, No neck pain, No restricted range of motion Skin: No bruising, No erythema, No pruritis Neurologic: No confusion, No headache, No syncope Lymphatic: No adenopathy, No tender nodes Psychological: nl mood/affect, No anxiety, No confusion Immunologic: No pruritis, No rhinitis PMH/Family/Social Social History Alcohol Use: occasionally Smoking Status: Never smoker Drug Use: none Exam/Review of Systems Vital Signs Vitals Vital Signs Date Time Temp Pulse Resp B/P Pulse Ox O2 Delivery O2 Flow Rate FiO2 05/29/17 02:42 98.4 60 19 106/64 98 05/28/17 20:21 Room Air Intake and Output 05/28/17 05/28/17 05/29/17 15:00 23:00 07:00 Intake Total 700 ml Balance 700 ml Exam Constitutional: alert, oriented, well developed Head: atraumatic, normocephalic Eyes: EOMI, PERRL Respiratory: clear to auscultation, normal air movement Cardiovascular: nl pulses, regular rate and rhythm Gastrointestinal: other (Abdomen is diffusely tender with guarding. No rigidity), soft Extremities: normal pulses Labs Result Diagram: 05/29/17 0505/29/17 0520 Medications Medications Current Medications Sodium Chloride (NS) 1,000 ml @ 80 mls/hr [id number] IV Last administered on 05/28 21:16; Admin Dose 80 MLS/HR; Start 05/28/17 at 19:09; Stop 05/29/17 at 07: 38 Ondansetron HCl (Zofran Inj) 4 mg Q6H PRN IV NAUSEA AND/OR VOMITING; Start at 21:30 Morphine Sulfate 4 mg 4 mg Q4H PRN IV PAIN LEVEL 6-10 Last administered on 05/29 02:36; Admin Dose 4 MG; Start 05/28/17 at 21:30 Dextrose/Sodium Chloride (D5-1/2ns) 1,000 ml @ 100 mls/hr Q10H IV Last administered on 05/28/17 21:57; Admin Dose 100 MLS/HR; Start 05/28/17 at 21:30 JUAN AGUIRRE MD May 29, 2017 06:40
[2017-05-29] MEDS: DEXTROSE 5%-0.45% NACL 1,000 ML IV SCH ×3 (07:30→17:30)
[2017-05-29] MEDS: ONDANSETRON 4 MG INJ IV PRN ×2 (08:11→15:35)
[2017-05-29 08:13] VITALS: BP 108/66; RESP 18
[2017-05-29 14:33] VITALS: BP_SYST 112; BP_SYST 118; BP_DIAS 59; BP_DIAS 73; RESP 16; RESP 18
--- NOTE | 2017-05-29 15:08 | PN ---
Date/Time of Note Date/Time of Note DATE: 05/29/17 TIME: 15:02 Assessment/Plan VTE Prophylaxis VTE Prophylaxis Intervention: SCD's Lines/Catheters IV Catheter Type (from Nrsg): Peripheral IV Assessment/Plan Assessment/Plan 1. Acute gallstone related pancreatitis, NPO/IVF/pain management, follow up with enzymes 2. Cholelithiasis with CBD dilation, follow up with MRCP, surgery follow up 3. Transaminitis, follow up; with LFTs Subjective 24 Hr Interval Summary Free Text/Dictation abdominal pain with nausea and vomiting Exam/Review of Systems Vital Signs Vitals Vital Signs Date Time Temp Pulse Resp B/P Pulse Ox O2 Delivery O2 Flow Rate FiO2 05/29/17 14:33 98.1 91 16 118/73 96 05/28/17 20:21 Room Air Intake and Output 05/28/17 05/28/17 05/29/17 14:59 22:59 06:59 Intake Total 700 ml Balance 700 ml Exam Constitutional: alert, oriented, well developed Head: atraumatic, normocephalic Eyes: EOMI, PERRL, nl conjunctiva, nl lids, nl sclera ENMT: nl external ears & nose, nl lips & teeth, nl nasal mucosa & septum Neck: non-tender, supple Respiratory: clear to auscultation, normal air movement, No congested cough, No crackles/rales, No diminished breath sounds, No intercostal retraction, No labored breathing, No other, No respirations, No tactile fremitus, No wheezing Cardiovascular: nl pulses, regular rate and rhythm, No S3, No S4, No bruits, No diastolic murmur, No edema, No gallop, No irregular rhythm, No jugular venous distention (JVD), No murmurs/extra sounds, No other, No rub, No systolic murmur Gastrointestinal: nl liver, spleen, soft, tender (epigastric tenderness), No ascites, No bowel sounds, No distended, No firm, No hepatomegaly, No mass , No other, No rebound or guarding, No splenomegaly, No surgical scars Musculoskeletal: nl extremities to inspection Extremities: normal pulses, No calf tenderness, No clubbing, No cyanosis, No edema, No other, No palpable cord, No pitting pedal edema, No tenderness 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, nl mental status, nl speech, nl strength Skin: nl turgor Results Result Diagram: 05/29/17 0520 05/29/17 0520 Results 24 hrs Laboratory Tests Test 05/28/17 15:35 05/28/17 22:00 05/29/17 05:20 White Blood Count 8.0 # 6.4 5.3 Red Blood Count 4.30 # 3.70 L 3.83 L Hemoglobin 12.8 # 10.9 L 11.2 L Hematocrit 38.8 # 33.5 L 34.8 L Mean Corpuscular Volume 90.2 90.5 90.9 Mean Corpuscular Hemoglobin 29.8 29.5 29.2 Mean Corpuscular Hemoglobin Concent 33.0 32.5 32.2 Red Cell Distribution Width 12.3 12.3 12.3 Platelet Count 241 # 187 # 206 Mean Platelet Volume 9.4 9.2 9.5 Neutrophils % 81.4 H 71.8 60.7 Lymphocytes % 11.6 L 18.8 27.8 Monocytes % 6.1 7.3 7.9 Eosinophils % 0.5 1.6 2.8 Basophils % 0.0 0.2 0.2 Nucleated Red Blood Cells % 0.0 0.0 0.0 Neutrophils # 6.5 4.6 3.2 Lymphocytes # 0.9 1.2 1.5 Monocytes # 0.5 0.5 0.4 Eosinophils # 0.0 0.1 0.2 Basophils # 0.0 0.0 0.0 Nucleated Red Blood Cells # 0.0 0.0 0.0 Urine Color TIANA Urine Clarity SLIGHTLY CLOUDY A Urine pH 8.0 Urine Specific [place] 1.028 Urine Ketones NEGATIVE Urine Nitrite NEGATIVE Urine Bilirubin NEGATIVE Urine Urobilinogen 1+ H Urine Leukocyte Esterase 1+ H Urine Microscopic RBC 17 H Urine Microscopic WBC 4 Urine Squamous Epithelial Cells FEW Urine Bacteria FEW A Urine Mucus MANY A Urine Hemoglobin NEGATIVE Urine Glucose NEGATIVE Urine Total Protein 1+ H Sodium Level 142 138 141 Potassium Level 4.0 3.8 3.7 Chloride Level 104 109 109 Carbon Dioxide Level 26 22 24 Anion Gap 16 11 12 Blood Urea Nitrogen 12 13 12 Creatinine 0.63 0.53 0.61 Glucose Level 89 89 83 Calcium Level 9.5 8.6 8.8 Total Bilirubin 0.6 0.5 0.5 Direct Bilirubin 0.00 0.00 0.00 Indirect Bilirubin 0.6 0.5 0.5 Aspartate Amino Transf (AST/SGOT) 121 H 72 H 61 H Alanine Aminotransferase (ALT/SGPT) 111 H 79 H 77 H Alkaline Phosphatase 110 82 87 Total Protein 8.3 H 6.7 # 6.9 Albumin 4.4 3.6 3.7 Globulin 3.90 H 3.10 3.20 Albumin/Globulin Ratio 1.12 1.16 1.15 Lipase 20133 H 7314 H Beta HCG, Quantitative < 2.4 Phosphorus Level 4.4 Magnesium Level 1.7 Medications Medications Current Medications Ondansetron HCl (Zofran Inj) 4 mg Q6H PRN IV NAUSEA AND/OR VOMITING Last administered on 05/29/17 08:11; Admin Dose 4 MG; Start 05/28/17 at 21:30 Morphine Sulfate 4 mg 4 mg Q4H PRN IV PAIN LEVEL 6-10 Last administered on 05/29 08:05; Admin Dose 4 MG; Start 05/28/17 at 21:30 Dextrose/Sodium Chloride (D5-1/2ns) 1,000 ml @ 100 mls/hr Q10H IV Last administered on 05/29/17 09:52; Admin Dose 100 MLS/HR; Start 05/28/17 at 21:30 ANA PAIGE MD May 29, 2017 15:08
--- NOTE | 2017-05-29 15:14 | QN ---
Documentation Comment patient at MRI ,will be back to assess patient ISMAEL TOLBERT NP May 29, 2017 15:14
--- NOTE | 2017-05-29 15:44 | CONS ---
Date/Time of Note Date/Time of Note DATE: 05/29/17 TIME: 15:31 Assessment/Plan Assessment/Plan Additional Assessment/Plan Assessment * Abdominal pain/elevated tranaminases Gallstone pancreatitis Cholelithiasis R/O choledocholithiasis Plan * awaiting MRCP * pain control * NPO * Case discussed with DR Lantigua * further orders will depend on clinical course Consultation Date/Type/Reason Admit Date/Time May 28, 2017 at 19:10 Date of Consultation: May 29, 2017 Type of Consultation: Gastroenterology Reason for Consultation elevated liver function test Referring Provider: MO JACOBSEN of Present Illness 36 year olfd female who presented in the emergency room complaining of abdominal pain x 2 days described as sharp radiating to the back with associated nausea and vomiting.Patient denies any fever,jaundice.Patient claims to have gallstones in the past.Emergency room workup revealed ultrasound Mildly dilated common bile duct. Distal common bile duct obstruction is not excluded. If further characterization is needed MRCP or ERCP is recommended of the pancreas not well visualized. If characterization of this structure is needed repeat exam or CT/MRI is recommended. Liver function AST 121 now 61,ALT 111 now 77,alkaline phosphatase 87,lipase 19348 now 39097.Presently still complaining of abdominal pain and nausea.We are still awaiting MRCP results Constitutional: No chills, No diaphoresis, No febrile Eyes: No discharge, No redness ENT: No congestion, No dysphagia, No sore throat Respiratory: No cough, No shortness of breath Cardiovascular: No chest pain, No edema, No lightheadedness Gastrointestinal: flatus, nausea, passing stool, vomiting, No blood, No diarrhea Genitourinary: no complaints Musculoskeletal: back pain, No bone/joint pain, No neck pain, No restricted range of motion Skin: No bruising, No erythema, No pruritis Neurologic: No confusion, No headache, No syncope Endocrine: No polydypsia, No polyuria Lymphatic: No adenopathy, No tender nodes Psychological: nl mood/affect, No anxiety, No confusion Immunologic: No pruritis, No rhinitis Social History Alcohol Use: occasionally Smoking Status: Never smoker Drug Use: none Exam/Review of Systems Vital Signs Vitals Vital Signs Date Time Temp Pulse Resp B/P Pulse Ox O2 Delivery O2 Flow Rate FiO2 05/29/17 14:33 98.1 91 16 118/73 96 05/28/17 20:21 Room Air Intake and Output 05/28/17 05/28/17 05/29/17 15:00 23:00 07:00 Intake Total 700 ml Balance 700 ml Exam Constitutional: alert, oriented, well developed Psych: nl mood/affect, no complaints Head: atraumatic, normocephalic Eyes: EOMI, PERRL, nl conjunctiva, nl lids, nl sclera ENMT: nl external ears & nose, nl lips & teeth, nl nasal mucosa & septum Neck: non-tender, supple Respiratory: clear to auscultation, normal air movement Cardiovascular: nl pulses, regular rate and rhythm Gastrointestinal: nl liver, spleen, soft, tender (right upper quadrant) Musculoskeletal: nl extremities to inspection, nl gait and stance Extremities: normal pulses 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, nl mental status, nl speech, nl strength Skin: nl turgor, No rash or lesions Lymph: nl lymph nodes Results Result Diagram: 05/29/17 0520 05/29/17 0520 Results 24 hrs Laboratory Tests Test 05/28/17 15:35 05/28/17 22:00 05/29/17 05:20 White Blood Count 8.0 # 6.4 5.3 Red Blood Count 4.30 # 3.70 L 3.83 L Hemoglobin 12.8 # 10.9 L 11.2 L Hematocrit 38.8 # 33.5 L 34.8 L Mean Corpuscular Volume 90.2 90.5 90.9 Mean Corpuscular Hemoglobin 29.8 29.5 29.2 Mean Corpuscular Hemoglobin Concent 33.0 32.5 32.2 Red Cell Distribution Width 12.3 12.3 12.3 Platelet Count 241 # 187 # 206 Mean Platelet Volume 9.4 9.2 9.5 Neutrophils % 81.4 H 71.8 60.7 Lymphocytes % 11.6 L 18.8 27.8 Monocytes % 6.1 7.3 7.9 Eosinophils % 0.5 1.6 2.8 Basophils % 0.0 0.2 0.2 Nucleated Red Blood Cells % 0.0 0.0 0.0 Neutrophils # 6.5 4.6 3.2 Lymphocytes # 0.9 1.2 1.5 Monocytes # 0.5 0.5 0.4 Eosinophils # 0.0 0.1 0.2 Basophils # 0.0 0.0 0.0 Nucleated Red Blood Cells # 0.0 0.0 0.0 Urine Color TIANA Urine Clarity SLIGHTLY CLOUDY A Urine pH 8.0 Urine Specific [place] 1.028 Urine Ketones NEGATIVE Urine Nitrite NEGATIVE Urine Bilirubin NEGATIVE Urine Urobilinogen 1+ H Urine Leukocyte Esterase 1+ H Urine Microscopic RBC 17 H Urine Microscopic WBC 4 Urine Squamous Epithelial Cells FEW Urine Bacteria FEW A Urine Mucus MANY A Urine Hemoglobin NEGATIVE Urine Glucose NEGATIVE Urine Total Protein 1+ H Sodium Level 142 138 141 Potassium Level 4.0 3.8 3.7 Chloride Level 104 109 109 Carbon Dioxide Level 26 22 24 Anion Gap 16 11 12 Blood Urea Nitrogen 12 13 12 Creatinine 0.63 0.53 0.61 Glucose Level 89 89 83 Calcium Level 9.5 8.6 8.8 Total Bilirubin 0.6 0.5 0.5 Direct Bilirubin 0.00 0.00 0.00 Indirect Bilirubin 0.6 0.5 0.5 Aspartate Amino Transf (AST/SGOT) 121 H 72 H 61 H Alanine Aminotransferase (ALT/SGPT) 111 H 79 H 77 H Alkaline Phosphatase 110 82 87 Total Protein 8.3 H 6.7 # 6.9 Albumin 4.4 3.6 3.7 Globulin 3.90 H 3.10 3.20 Albumin/Globulin Ratio 1.12 1.16 1.15 Lipase 38967 H 7314 H Beta HCG, Quantitative < 2.4 Phosphorus Level 4.4 Magnesium Level 1.7 Medications Medications Current Medications Ondansetron HCl (Zofran Inj) 4 mg Q6H PRN IV NAUSEA AND/OR VOMITING Last administered on 05/29/17 08:11; Admin Dose 4 MG; Start 05/28/17 at 21:30 Morphine Sulfate 4 mg 4 mg Q4H PRN IV PAIN LEVEL 6-10 Last administered on 05/29 08:05; Admin Dose 4 MG; Start 05/28/17 at 21:30 Dextrose/Sodium Chloride (D5-1/2ns) 1,000 ml @ 100 mls/hr Q10H IV Last administered on 05/29/17 09:52; Admin Dose 100 MLS/HR; Start 05/28/17 at 21:30 ISMAEL TOLBERT NP May 29, 2017 15:43
--- NOTE | 2017-05-29 16:04 | RADRPT ---
PROCEDURE: MRCP. CLINICAL INDICATION: Abdominal pain. TECHNIQUE: MRCP was performed. Patient was examined without contrast. 3-D coronal rotating MIP i mages of the biliary tree are available for review. COMPARISON: Ultrasound, 05/28/2017 FINDINGS: The gallbladder is distended and contains multiple gallstones. No gallbladder wall thickening or lesly ss evidence of pericholecystic fluid is identified. No intrahepatic or extrahepatic biliary dilatati on is present. There is suspicion of a 4 mm convex filling defect in the distal common duct (6-22), concerning for choledocholithiasis. Pancreatic duct is normal in caliber. The liver is normal in size and homogeneous in signal intensity. No hepatic mass lesion is seen. M inimal peripancreatic inflammation/edema is identified, concerning for mild acute pancreatitis. No e vidence of focal pancreatic mass is seen. Spleen, adrenal glands and kidneys are unremarkable. There is no obstructive uropathy. The stomach is partially collapsed, but appears grossly unremarkable. Abdominal aorta is normal in c aliber. No retroperitoneal or letty hepatis lymphadenopathy is identified. No bowel obstruction or a bscess is seen. The surrounding osseous structures are grossly unremarkable. IMPRESSION: 1. Findings compatible with mild acute pancreatitis, as above. 2. Gallbladder is distended and contains multiple gallstones, without gross evidence to indicate ch olecystitis. 3. 4 mm filling defect is identified in the distal common duct, concerning for common duct stone. N o biliary dilatation is seen. RPTAT: AAOO .Jared Chaidez MD, MD Date Time Electronically viewed and signed by .Jared Chaidez MD, on 05/29/2017 16:04 .R/
--- NOTE | 2017-05-29 17:42 | PN ---
Date/Time of Note Date/Time of Note DATE: 05/29/17 TIME: 17:30 Assessment/Plan Lines/Catheters IV [facility] Type (from [facility]): Peripheral IV Assessment/Plan Chief Complaint/Hosp Course 1. Abdominal pain with Cholelithiasis and Choledocholithiasis and Pancreatitis ; LFT's improving, panc enzymes improving; mrcp with filling defect in cbd -npo -ivf -abx -gi consult for ercp -eventual lap branden 2. Dilated CBD with Transaminitis, ? Choledocholithiasis -as above 3. Pancreatitis probably 2nd Gallstones -as above 4. BMI 29 -diet and exercise optimization Thank you. Patient seen and examined in collaboration with Dr. Nii Bain. Problems: Subjective 24 Hr Interval Summary Feels ok. Abdominal pain improved with morphine. MRCP with filling defect in cbd. No fevers, chills, sob, cp, palpitations, n/v/d/dysuria, valladares, dizziness. Exam/Review of Systems Vital Signs Vitals Vital Signs Date Time Temp Pulse Resp B/P Pulse Ox O2 Delivery O2 Flow Rate FiO2 05/29/17 14:33 98.1 91 16 118/73 96 05/28/17 20:21 Room Air Intake and Output 05/28/17 05/28/17 05/29/17 15:00 23:00 07:00 Intake Total 700 ml Balance 700 ml Exam Free Text/Dictation Constitutional: alert, obese, oriented, No distress Psych: nl mood/affect, No anxiety, No confusion Head: atraumatic, normocephalic, No hematomas Eyes: EOMI, PERRL, nl sclera, No icteric ENMT: mucosa pink and moist, nl external ears & nose, nl lips & teeth Neck: non-tender, supple, No jvd Respiratory: normal air movement, No congested cough, No labored breathing Cardiovascular: regular rate and rhythm, No edema Gastrointestinal: soft, improved tenderness (min epigastric and ruq without murphys), No distended, No rebound or guarding Musculoskeletal: nl extremities to inspection, nl gait and stance, No joint tenderness Extremities: normal pulses, No calf tenderness, No cyanosis, No edema Neurological: nl mental status, nl speech, nl strength Skin: nl turgor, No diaphoresis, No ecchymosis, No rash or lesions Lymph: nl lymph nodes, nontender Results Result Diagram: 05/29/17 0520 05/29/17 0520 IVAN COLLAZO NP May 29, 2017 17:42
[2017-05-29 20:12] VITALS: BP 118/69; RESP 16
[2017-05-30] MEDS: DEXTROSE 5%-0.45% NACL 1,000 ML IV SCH ×2 (01:07→13:16)
[2017-05-30 02:14] VITALS: BP 106/73; RESP 18
[2017-05-30] MEDS: morphine 4 MG/ML VIAL IV PRN ×3 (05:02→17:32)
[2017-05-30 05:22] LABS: BASOPHILS % 0.2 % (0.0-2.0); EOSINOPHILS # 0.2 10^3/ul (0.0-0.5); EOSINOPHILS % 3.7 % (0.0-7.0); HEMATOCRIT 36.1 % (37.0-47.0); HEMOGLOBIN 11.5 g/dl (12.0-16.0); LYMPHOCYTES # 1.1 10^3/ul (0.8-2.9); LYMPHOCYTES % 23.5 % (15.0-51.0); MEAN CORPUSCULAR HEMOGLOBIN 28.8 pg (29.0-33.0); MEAN CORPUSCULAR HGB CONC 31.9 g/dl (32.0-37.0); MEAN CORPUSCULAR VOLUME 90.5 fl (82.0-101.0); MEAN PLATELET VOLUME 9.8 fl (7.4-10.4); MONOCYTE # 0.4 10^3/ul (0.3-0.9); MONOCYTES % 7.9 % (0.0-11.0); NEUTROPHIL # 2.9 10^3/ul (1.6-7.5); NEUTROPHILS % 64.3 % (39.0-77.0); PLATELET COUNT 229 10^3/UL (140-415); RED BLOOD COUNT 3.99 10^6/ul (4.20-5.40); RED CELL DISTRIBUTION WIDTH 11.9 % (11.5-14.5); WHITE BLOOD COUNT 4.6 10^3/ul (4.8-10.8)
[2017-05-30 06:16] LABS: ALBUMIN 3.9 g/dl (3.3-4.9); ALBUMIN/GLOBULIN RATIO 1.14; BILIRUBIN,INDIRECT 0.3 mg/dl (0-1.1); BILIRUBIN,TOTAL 0.3 mg/dl (0.2-1.3); CALCIUM 9.1 mg/dl (8.4-10.2); CREATININE 0.66 mg/dl (0.44-1.00); POTASSIUM 3.7 mmol/L (3.5-5.1); TOTAL PROTEIN 7.3 g/dl (6.1-8.1)
[2017-05-30 09:02] VITALS: BP 119/66; RESP 16
--- NOTE | 2017-05-30 13:52 | PN ---
Date/Time of Note Date/Time of Note DATE: 05/30/17 TIME: 13:46 Assessment/Plan Lines/Catheters IV [facility]ter Type (from [facility]): Peripheral IV Assessment/Plan Chief Complaint/Hosp Course 1. Abdominal pain with Cholelithiasis and Choledocholithiasis and Pancreatitis ; LFT's cont to improve, panc enzymes improving; mrcp with filling defect in cbd -npo -ivf -abx -gi consult for ercp -eventual lap branden 2. Dilated CBD with Transaminitis, ? Choledocholithiasis -as above 3. Pancreatitis probably 2nd Gallstones -as above 4. BMI 29 -diet and exercise optimization Thank you. Patient seen and examined in collaboration with Dr. Nii Bain. Problems: Subjective 24 Hr Interval Summary Continues to have abdominal discomfort/pain. +flatus. No fevers, chills, sob, congested cough, n/v/d/dysuria, valladares, dizziness, cp, palpitations. NPO. Exam/Review of Systems Vital Signs Vitals Vital Signs Date Time Temp Pulse Resp B/P Pulse Ox O2 Delivery O2 Flow Rate FiO2 05/30/17 09:02 97.8 51 16 119/66 96 05/28/17 20:21 Room Air Intake and Output 05/29/17 05/29/17 05/30/17 15:00 23:00 07:00 Intake Total 300 ml 600 ml 800 ml Balance 300 ml 600 ml 800 ml Exam Free Text/Dictation Constitutional: alert, obese, oriented, No distress Psych: nl mood/affect, No anxiety, No confusion Head: atraumatic, normocephalic, No hematomas Eyes: EOMI, PERRL, nl sclera, No icteric ENMT: mucosa pink and moist, nl external ears & nose, nl lips & teeth Neck: non-tender, supple, No jvd Respiratory: normal air movement, No congested cough, No labored breathing Cardiovascular: regular rate and rhythm, No edema Gastrointestinal: soft, cont tenderness (min epigastric and ruq without murphys ), No distended, No rebound or guarding Musculoskeletal: nl extremities to inspection, nl gait and stance, No joint tenderness Extremities: normal pulses, No calf tenderness, No cyanosis, No edema Neurological: nl mental status, nl speech, nl strength Skin: nl turgor, No diaphoresis, No ecchymosis, No rash or lesions Lymph: nl lymph nodes, nontender Results Result Diagram: 05/30/1743905/30/17 0440 IVAN COLLAZO NP May 30, 2017 13:52
[2017-05-30 14:00] VITALS: BP 131/70; RESP 20
--- NOTE | 2017-05-30 14:21 | PN ---
Date/Time of Note Date/Time of Note DATE: 05/30/17 TIME: 14:17 Assessment/Plan VTE Prophylaxis VTE Prophylaxis Intervention: SCD's Lines/Catheters IV Catheter Type (from Nrs): Peripheral IV Assessment/Plan Assessment/Plan Assessment * Abdominal pain/elevated tranaminases Gallstone pancreatitis Cholelithiasis choledocholithiasis Plan * ERCP risk and benefit explained to patient,patient agreed with procedure * NPO * Case discussed with DR Lantigua * further orders will depend on clinical course Subjective 24 Hr Interval Summary Free Text/Dictation * course reviewed * patient seen and examined * Bearable abdominal pain * MRCP . Findings compatible with mild acute pancreatitis, as above. . Gallbladder is distended and contains multiple gallstones, without gross evidence to indicate cholecystitis. . 4 mm filling defect is identified in the distal common duct , concerning for common duct stone. No biliary dilatation is seen. Exam/Review of Systems Vital Signs Vitals Vital Signs Date Time Temp Pulse Resp B/P Pulse Ox O2 Delivery O2 Flow Rate FiO2 05/30/17 09:02 97.8 51 16 119/66 96 05/28/17 20:21 Room Air Intake and Output 05/29/17 05/29/17 05/30/17 15:00 23:00 07:00 Intake Total 300 ml 600 ml 800 ml Balance 300 ml 600 ml 800 ml Exam Constitutional: alert, oriented Neck: non-tender, supple Respiratory: clear to auscultation, normal air movement Cardiovascular: nl pulses, regular rate and rhythm Gastrointestinal: non-tender, soft Musculoskeletal: nl extremities to inspection, nl gait and stance Neurological: nl speech, nl strength Skin: nl turgor Results Result Diagram: 05/30/170 05/30/170 Results 24 hrs Laboratory Tests Test 05/30/17 04:40 White Blood Count 4.6 L Red Blood Count 3.99 L Hemoglobin 11.5 L Hematocrit 36.1 L Mean Corpuscular Volume 90.5 Mean Corpuscular Hemoglobin 28.8 L Mean Corpuscular Hemoglobin Concent 31.9 L Red Cell Distribution Width 11.9 Platelet Count 229 Mean Platelet Volume 9.8 Neutrophils % 64.3 Lymphocytes % 23.5 Monocytes % 7.9 Eosinophils % 3.7 Basophils % 0.2 Nucleated Red Blood Cells % 0.0 Neutrophils # 2.9 Lymphocytes # 1.1 Monocytes # 0.4 Eosinophils # 0.2 Basophils # 0.0 Nucleated Red Blood Cells # 0.0 Sodium Level 140 Potassium Level 3.7 Chloride Level 105 Carbon Dioxide Level 27 Anion Gap 12 Blood Urea Nitrogen 6 L Creatinine 0.66 Glucose Level 105 Calcium Level 9.1 Total Bilirubin 0.3 Direct Bilirubin 0.00 Indirect Bilirubin 0.3 Aspartate Amino Transf (AST/SGOT) 49 H Alanine Aminotransferase (ALT/SGPT) 67 Alkaline Phosphatase 87 Total Protein 7.3 Albumin 3.9 Globulin 3.40 H Albumin/Globulin Ratio 1.14 Medications Medications Current Medications Ondansetron HCl (Zofran Inj) 4 mg Q6H PRN IV NAUSEA AND/OR VOMITING Last administered on 05/29/17 15:35; Admin Dose 4 MG; Start 05/28/17 at 21:30 Morphine Sulfate 4 mg 4 mg Q4H PRN IV PAIN LEVEL 6-10 Last administered on 05/30 10:30; Admin Dose 4 MG; Start 05/28/17 at 21:30 Dextrose/Sodium Chloride (D5-1/2ns) 1,000 ml @ 100 mls/hr Q10H IV Last administered on 05/30/17 13:16; Admin Dose 100 MLS/HR; Start 05/28/17 at 21:30 ISMAEL TOLBERT NP May 30, 2017 14:21
--- NOTE | 2017-05-30 15:47 | PN ---
Date/Time of Note Date/Time of Note DATE: 05/30/17 TIME: 15:46 Assessment/Plan VTE Prophylaxis VTE Prophylaxis Intervention: SCD's Lines/Catheters IV Catheter Type (from Nrsg): Peripheral IV Assessment/Plan Assessment/Plan 1. Acute gallstone related pancreatitis, NPO/IVF/pain management, follow up with enzymes 2. Cholelithiasis, CBD stone per MRCP, ERCP per GI 3. Transaminitis, follow up; with LFTs Subjective 24 Hr Interval Summary Free Text/Dictation still with abdominal pain Exam/Review of Systems Vital Signs Vitals Vital Signs Date Time Temp Pulse Resp B/P Pulse Ox O2 Delivery O2 Flow Rate FiO2 05/30/17 09:02 97.8 51 16 119/66 96 05/28/17 20:21 Room Air Intake and Output 05/29/17 05/29/17 05/30/17 15:00 23:00 07:00 Intake Total 300 ml 600 ml 800 ml Balance 300 ml 600 ml 800 ml Exam Constitutional: alert, oriented, well developed Psych: nl mood/affect, no complaints Head: atraumatic, normocephalic Eyes: EOMI, PERRL, nl conjunctiva, nl lids, nl sclera ENMT: nl external ears & nose, nl lips & teeth, nl nasal mucosa & septum Neck: non-tender, supple Respiratory: clear to auscultation, normal air movement, No congested cough, No crackles/rales, No diminished breath sounds, No intercostal retraction, No labored breathing, No other, No respirations, No tactile fremitus, No wheezing Cardiovascular: nl pulses, regular rate and rhythm, No S3, No S4, No bruits, No diastolic murmur, No edema, No gallop, No irregular rhythm, No jugular venous distention (JVD), No murmurs/extra sounds, No other, No rub, No systolic murmur Gastrointestinal: nl liver, spleen, soft, tender (epigastric) Musculoskeletal: nl extremities to inspection Extremities: normal pulses 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, nl mental status, nl speech Skin: nl turgor Lymph: nl lymph nodes Results Result Diagram: 05/30/17 0440 05/30/17 0440 Results 24 hrs Laboratory Tests Test 05/30/17 04:40 White Blood Count 4.6 L Red Blood Count 3.99 L Hemoglobin 11.5 L Hematocrit 36.1 L Mean Corpuscular Volume 90.5 Mean Corpuscular Hemoglobin 28.8 L Mean Corpuscular Hemoglobin Concent 31.9 L Red Cell Distribution Width 11.9 Platelet Count 229 Mean Platelet Volume 9.8 Neutrophils % 64.3 Lymphocytes % 23.5 Monocytes % 7.9 Eosinophils % 3.7 Basophils % 0.2 Nucleated Red Blood Cells % 0.0 Neutrophils # 2.9 Lymphocytes # 1.1 Monocytes # 0.4 Eosinophils # 0.2 Basophils # 0.0 Nucleated Red Blood Cells # 0.0 Sodium Level 140 Potassium Level 3.7 Chloride Level 105 Carbon Dioxide Level 27 Anion Gap 12 Blood Urea Nitrogen 6 L Creatinine 0.66 Glucose Level 105 Calcium Level 9.1 Total Bilirubin 0.3 Direct Bilirubin 0.00 Indirect Bilirubin 0.3 Aspartate Amino Transf (AST/SGOT) 49 H Alanine Aminotransferase (ALT/SGPT) 67 Alkaline Phosphatase 87 Total Protein 7.3 Albumin 3.9 Globulin 3.40 H Albumin/Globulin Ratio 1.14 Medications Medications Current Medications Ondansetron HCl (Zofran Inj) 4 mg Q6H PRN IV NAUSEA AND/OR VOMITING Last administered on 05/29/17 15:35; Admin Dose 4 MG; Start 05/28/17 at 21:30 Morphine Sulfate 4 mg 4 mg Q4H PRN IV PAIN LEVEL 6-10 Last administered on 05/30 10:30; Admin Dose 4 MG; Start 05/28/17 at 21:30 Dextrose/Sodium Chloride (D5-1/2ns) 1,000 ml @ 100 mls/hr Q10H IV Last administered on 05/30/17 13:16; Admin Dose 100 MLS/HR; Start 05/28/17 at 21:30 ANA PAIGE MD May 30, 2017 15:47
[2017-05-30 16:58] LABS: AMYLASE 266 U/L (11-123)
[2017-05-30 17:54] VITALS: BP 131/70; RESP 20
[2017-05-30 20:00] VITALS: BP 122/75; RESP 20
[2017-05-31] VITALS (12 sets, daily range): BP systolic 116–136; BP diastolic 64–92; PULSE 48–72; RESP 14–22
[2017-05-31] MEDS: morphine 4 MG/ML VIAL IV PRN ×2 (02:13→18:45)
[2017-05-31] MEDS: DEXTROSE 5%-0.45% NACL 1,000 ML IV SCH ×3 (04:09→21:26)
[2017-05-31 05:58] LABS: ALBUMIN 3.4 g/dl (3.3-4.9); ALBUMIN/GLOBULIN RATIO 0.91; BILIRUBIN,INDIRECT 0.2 mg/dl (0-1.1); BILIRUBIN,TOTAL 0.2 mg/dl (0.2-1.3); CALCIUM 9.1 mg/dl (8.4-10.2); CREATININE 0.59 mg/dl (0.44-1.00); POTASSIUM 3.7 mmol/L (3.5-5.1); TOTAL PROTEIN 7.1 g/dl (6.1-8.1)
[2017-05-31] MEDS ORDERED: MIDAZOLAM 1 MG/ML 2 ML INJ IV PRN ×2 (06:30→17:30)
[2017-05-31] MEDS ORDERED: LABETALOL HCL 20MG INJ IV PRN ×2 (06:30→17:30)
[2017-05-31] MEDS ORDERED: EPHEDrine SULFATE 50 MG/5 ML SYG IV PRN ×2 (06:30→17:30)
[2017-05-31] MEDS ORDERED: ONDANSETRON 4 MG INJ IV PRN ×2 (06:30→17:30)
[2017-05-31] MEDS ORDERED: ATROPINE 1 MG/10 ML SYRINGE IV PRN (06:30)
[2017-05-31] MEDS ORDERED: FENTAnyl 50 MCG/ML VIAL IV PRN ×5 (06:30→17:30)
[2017-05-31] MEDS ORDERED: morphine (1 MG/ML) 10ML SYRINGE IV PRN ×3 (06:30)
[2017-05-31] MEDS ORDERED: OXYCODONE/ACETAMINOPHEN (5/325) TAB PO PRN ×2 (06:30)
[2017-05-31] MEDS ORDERED: HYDROmorphONE (0.2 MG/ML) 10ML SYG IV PRN ×3 (06:30)
[2017-05-31] MEDS ORDERED: MEPERIDINE 25 MG INJ IV PRN ×2 (06:30→17:30)
[2017-05-31] MEDS ORDERED: hydrALAzine 20 MG INJ IV PRN ×2 (06:30→17:30)
[2017-05-31] MEDS ORDERED: DIPHENHYDRAMINE 50 MG INJ IV PRN ×2 (06:30→17:30)
[2017-05-31] MEDS ORDERED: SUCCINYLCHOLINE CHLORIDE 100 MG/5 ML SYG IV ONE (16:22)
[2017-05-31] MEDS ORDERED: LIDOCAINE 2% (SDV) 5 ML INJ ONE (16:22)
[2017-05-31] MEDS ORDERED: NEOSTIGMINE 3 MG/3 ML SYRINGE ONE (16:22)
[2017-05-31] MEDS ORDERED: PROPOFOL 20 ML ONE (16:22)
[2017-05-31] MEDS ORDERED: ROCURONIUM 50 MG INJ ONE (16:22)
[2017-05-31] MEDS ORDERED: GLYCOPYRROLATE 0.4 MG INJ ONE ×2 (16:22→16:50)
--- NOTE | 2017-05-31 16:30 | PN ---
Date/Time of Note Date/Time of Note DATE: 05/31/17 TIME: 16:27 Assessment/Plan VTE Prophylaxis VTE Prophylaxis Intervention: SCD's Lines/Catheters IV Catheter Type (from Nrsg): Peripheral IV Assessment/Plan Assessment/Plan 1. Acute gallstone related pancreatitis, improving, IVF/pain management. start diet after ERCP if stable 2. Cholelithiasis, CBD stone per MRCP, ERCP today, then lap cholecystectomy per surgery 3. Transaminitis, follow up; with LFTs Subjective 24 Hr Interval Summary Free Text/Dictation abdominal pain. ERCP today Exam/Review of Systems Vital Signs Vitals Vital Signs Date Time Temp Pulse Resp B/P Pulse Ox O2 Delivery O2 Flow Rate FiO2 05/31/17 15:29 98.0 72 18 132/87 94 Room Air Intake and Output 05/30/17 05/30/17 05/31/17 15:00 23:00 07:00 Intake Total 600 ml 400 ml 700 ml Balance 600 ml 400 ml 700 ml Exam Constitutional: alert, oriented, well developed Psych: nl mood/affect, no complaints Head: atraumatic, normocephalic Eyes: EOMI, nl conjunctiva, nl lids ENMT: nl external ears & nose, nl lips & teeth, nl nasal mucosa & septum Neck: non-tender, supple Respiratory: clear to auscultation, normal air movement, No congested cough, No crackles/rales, No diminished breath sounds, No intercostal retraction, No labored breathing, No other, No respirations, No tactile fremitus, No wheezing Cardiovascular: nl pulses, regular rate and rhythm, No S3, No S4, No bruits, No diastolic murmur, No edema, No gallop, No irregular rhythm, No jugular venous distention (JVD), No murmurs/extra sounds, No other, No rub, No systolic murmur Gastrointestinal: nl liver, spleen, soft, tender (epigastric tenderness) Musculoskeletal: nl extremities to inspection Extremities: normal pulses, No calf tenderness, No clubbing, No cyanosis, No edema, No other, No palpable cord, No pitting pedal edema, No tenderness 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, nl mental status, nl speech, nl strength Skin: nl turgor Lymph: nl lymph nodes Results Result Diagram: 9/28/17 0440 9/29/17 0442 Results 24 hrs Laboratory Tests Test 05/31/17 04:42 05/31/17 13:17 Sodium Level 140 Potassium Level 3.7 Chloride Level 106 Carbon Dioxide Level 27 Anion Gap 11 Blood Urea Nitrogen 6 L Creatinine 0.59 Glucose Level 92 Calcium Level 9.1 Total Bilirubin 0.2 Direct Bilirubin 0.00 Indirect Bilirubin 0.2 Aspartate Amino Transf (AST/SGOT) 43 Alanine Aminotransferase (ALT/SGPT) 63 Alkaline Phosphatase 78 Total Protein 7.1 Albumin 3.4 Globulin 3.70 H Albumin/Globulin Ratio 0.91 Lipase 1424 H Urine Test NEGATIVE Medications Medications Current Medications Ondansetron HCl (Zofran Inj) 4 mg Q6H PRN IV NAUSEA AND/OR VOMITING Last administered on 05/29/17 15:35; Admin Dose 4 MG; Start 05/28/17 at 21:30 Morphine Sulfate 4 mg 4 mg Q4H PRN IV PAIN LEVEL 6-10 Last administered on 05/31 02:13; Admin Dose 4 MG; Start 05/28/17 at 21:30 Dextrose/Sodium Chloride (D5-1/2ns) 1,000 ml @ 100 mls/hr Q10H IV Last administered on 05/31/17 04:09; Admin Dose 100 MLS/HR; Start 05/28/17 at 21:30 ANA PAIGE MD May 31, 2017 16:30
--- NOTE | 2017-05-31 17:25 | PN ---
Date/Time of Note Date/Time of Note DATE: 05/31/17 TIME: 17:23 Assessment/Plan Lines/Catheters IV Catheter Type (from [facility]): Peripheral IV Assessment/Plan Chief Complaint/Hosp Course 1. Abdominal pain with Cholelithiasis and Choledocholithiasis and Pancreatitis ; LFT's cont to improve, panc enzymes improving; mrcp with filling defect in cbd -npo -ivf -abx -gi for ercp today -eventual lap branden 2. Dilated CBD with Transaminitis, Choledocholithiasis -as above 3. Pancreatitis probably 2nd Gallstones -as above 4. BMI 29 -diet and exercise optimization Thank you, Problems: Subjective 24 Hr Interval Summary Continues to have abdominal discomfort/pain. +flatus. No fevers, chills, sob, congested cough, n/v/d/dysuria, valladares, dizziness, cp, palpitations. NPO. ERCP today. Exam/Review of Systems Vital Signs Vitals Vital Signs Date Time Temp Pulse Resp B/P Pulse Ox O2 Delivery O2 Flow Rate FiO2 05/31/17 15:29 98.0 72 18 132/87 94 Room Air Intake and Output 05/30/17 05/30/17 05/31/17 15:00 23:00 07:00 Intake Total 600 ml 400 ml 700 ml Balance 600 ml 400 ml 700 ml Exam Free Text/Dictation Constitutional: alert, obese, oriented, No distress Psych: nl mood/affect, No anxiety, No confusion Head: atraumatic, normocephalic, No hematomas Eyes: EOMI, PERRL, nl sclera, No icteric ENMT: mucosa pink and moist, nl external ears & nose, nl lips & teeth Neck: non-tender, supple, No jvd Respiratory: normal air movement, No congested cough, No labored breathing Cardiovascular: regular rate and rhythm, No edema Gastrointestinal: soft, cont tenderness (min epigastric and ruq without murphys ), No distended, No rebound or guarding Musculoskeletal: nl extremities to inspection, nl gait and stance, No joint tenderness Extremities: normal pulses, No calf tenderness, No cyanosis, No edema Neurological: nl mental status, nl speech, nl strength Skin: nl turgor, No diaphoresis, No ecchymosis, No rash or lesions Lymph: nl lymph nodes, nontender Results Result Diagram: 05/30/17 0440 05/31/17 0442 FIDEL BRAGA MD May 31, 2017 17:25
--- NOTE | 2017-05-31 17:28 | OPPN ---
Date/Time of Note Date/Time of Note DATE: 05/31/17 TIME: 17:22 Proc Note GI Procedure Date 05/31/17 Pre-procedure Diagnosis * Choledocholithiasis Post-procedure Diagnosis Impression: * Choledocholithiasis * Post sphincterotomy * Post stone removal Plan: * Close observation * Clear liquid diet if pain-free * Laparoscopic cholecystectomy as soon as feasible . Procedure Performed: ERCP (Plus sphincterotomy plus stone removal) Surgeon GURDEEP QUINONEZ MD . Can Washer none Anesthesia Type: general Anesthesiologist: KARLY DEE MD Tourniquet Time none EBL none Transfusion required none Biopsy 1: None Grafts/Implants none Tubes/Drains none Complication(s) none Pt Condition post procedure: stable Disposition: PACU Indications: other (choledocholithiasis) Procedure Description After informed consent, with the patient/relatives understanding the procedure, its indications, potential risks and complications, including but not limited to : allergic reaction, bleeding, perforation or infection, and after all pertinent questions were answered to the patients satisfaction, the patient/ relatives signed witnessed informed consent. Following this, premedication was administered slowly IV push under careful cardiovascular and respiratory monitoring with pulse oximetry, automatic blood pressure, and manager monitoring. Once the sedative effect was achieved the patient was place in the prone position in the radiology special procedures suite; the side viewing panendoscope was introduced and advanced under visual control. Careful examination of the upper gastrointestinal tract, both on insertion as well as withdrawal of the instrument disclosed the following findings: Esophagus: The mucosa of the entire appears within normal limits. There is no evidence of esophagitis, varices, neoplasm or stricture. No Hiatal Hernia identified. Stomach: Upon entrance to the stomach air was insufflated, the gastric helm distended normally, the mucosa of the fundus, body and antrum of the stomach was carefully examined both head-on and on retroflexion, and shows no abnormalities. There is no evidence of gastritis, ulcers, or neoplasm. Pylorus: The pylorus appears patent and within normal limits, with no evidence of gastric outlet obstruction. Duodenum: The duodenal mucosa was carefully examined in the duodenal bulb as well as the second portion of the duodenum and appears unremarkable with no evidence of duodenitis, ulcer or neoplasm. Ampulla of vater: The ampulla of Vater was identified and carefully examined appearing within normal limits. Cannulation: At this point cannulation was accomplished with the following fluoroscopic findings: Pancreatogram: Partially opacified, normal Cholangiogram: Low insertion of the cystic duct, moderate dilatation of the biliary tree with an estimated lumen of 10 mm. Small filling defect distal common bile duct. Post sphincterotomy. Post balloon sweeping with stone removal. The instrument was then withdrawn the patient tolerated the procedure well and was transfer out of the endoscopy suite awake, and in good condition to continue to recover under observation. Copies To: CC: GURDEEP QUINONEZ MD, MORDO MD May 31, 2017 17:28
[2017-05-31] MEDS ORDERED: METOCLOPRAMIDE 10 MG INJ IV PRN ×2 (17:30→21:30)
[2017-05-31] MEDS ORDERED: CEFAZOLIN 2 GM/50 ML (PMX) 50 ML IVPB ONE ×2 (17:47→18:00)
[2017-05-31] MEDS ORDERED: LEVOFLOXACIN 500MG/D5W (PMX) 100 ML IVPB SCH (18:00)
[2017-05-31] MEDS: ONDANSETRON 4 MG INJ IV PRN (18:45)
[2017-05-31] MEDS ORDERED: HYDROCODONE/APAP (10/325) TAB PO PRN (20:30)
[2017-05-31] MEDS ORDERED: KETOROLAC 30 MG INJ IV PRN (20:30)
[2017-05-31] MEDS ORDERED: LORAZEPAM 2 MG INJ IV ONE (21:30)
[2017-05-31] MEDS: CEFAZOLIN 1 GM/50 ML (PMX) 50 ML IVPB SCH (21:32)
--- NOTE | 2017-05-31 21:46 | RADRPT ---
PROCEDURE: Intraoperative imaging for ERCP with fluoroscopy. CLINICAL INDICATION: Right upper quadrant pain. Intraoperative. TECHNIQUE: 8 images of the right upper quadrant of the abdomen were obtained in the operating room with an image intensifier. No radiologist was in attendance. 196 seconds of fluoroscopy time was used. COMPARISON: MRCP dated 05/31/2017. FINDINGS: Images demonstrate the endoscope in position. Contrast was injected into the common bile duct. The c ommon bile duct is dilated and there is a filling defect distally. A balloon sweep was made. Contras t enters the gallbladder. There are multiple gallstones in the gallbladder. The pancreatic duct is g rossly normal. IMPRESSION: 1. Dilated common bile duct with filling defect distally consistent with a stone. A balloon sweep wa s made. 2. Gallstones in the gallbladder. RPTAT: QQ .Michael Lowry MD, Date Time Electronically viewed and signed by .Michael Lowry MD, on 05/31/2017 21:45 .R/
[2017-05-31] MEDS ORDERED: metroNIDAZOLE 500 MG/NS (PMX) 100 ML IVPB SCH (22:00)
[2017-06-01 02:00] VITALS: BP 132/80; RESP 20
[2017-06-01] MEDS: CEFAZOLIN 1 GM/50 ML (PMX) 50 ML IVPB SCH ×3 (05:13→21:36)
[2017-06-01] MEDS: DEXTROSE 5%-0.45% NACL 1,000 ML IV SCH ×3 (05:30→21:36)
[2017-06-01 05:38] LABS: BASOPHILS % 0.2 % (0.0-2.0); EOSINOPHILS % 0.4 % (0.0-7.0); HEMOGLOBIN 11.8 g/dl (12.0-16.0); LYMPHOCYTES # 0.6 10^3/ul (0.8-2.9); LYMPHOCYTES % 12.2 % (15.0-51.0); MEAN CORPUSCULAR HEMOGLOBIN 28.6 pg (29.0-33.0); MEAN CORPUSCULAR HGB CONC 33.7 g/dl (32.0-37.0); MEAN PLATELET VOLUME 9.3 fl (7.4-10.4); MONOCYTE # 0.5 10^3/ul (0.3-0.9); MONOCYTES % 8.7 % (0.0-11.0); NEUTROPHILS % 78.1 % (39.0-77.0); PLATELET COUNT 246 10^3/UL (140-415); RED BLOOD COUNT 4.12 10^6/ul (4.20-5.40); RED CELL DISTRIBUTION WIDTH 11.9 % (11.5-14.5); WHITE BLOOD COUNT 5.2 10^3/ul (4.8-10.8)
[2017-06-01 06:17] LABS: ALBUMIN 3.9 g/dl (3.3-4.9); ALBUMIN/GLOBULIN RATIO 1.14; BILIRUBIN,DIRECT 0.4 mg/dl (0.00-0.20); BILIRUBIN,INDIRECT 0.5 mg/dl (0-1.1); BILIRUBIN,TOTAL 0.9 mg/dl (0.2-1.3); CALCIUM 9.1 mg/dl (8.4-10.2); CREATININE 0.52 mg/dl (0.44-1.00); POTASSIUM 3.7 mmol/L (3.5-5.1); TOTAL PROTEIN 7.3 g/dl (6.1-8.1)
[2017-06-01 08:00] VITALS: BP 110/72; RESP 20
--- NOTE | 2017-06-01 09:44 | PN ---
Date/Time of Note Date/Time of Note DATE: 06/01/17 TIME: 09:41 Assessment/Plan Lines/Catheters IV Catheter Type (from [facility]): Peripheral IV Eugene in Place (from [facility]): No Assessment/Plan Chief Complaint/Hosp Course 1. Abdominal pain with Cholelithiasis and Choledocholithiasis and Pancreatitis ; s/p ERCP stone removal, sphincterotomy but no stent placement -trend labs -ivf -abx -eventual lap branden (outpt vs inpt) - cancelled yesterday per GI 2. Dilated CBD with Transaminitis, Choledocholithiasis s/p ercp/sphincterotomy -as above 3. Pancreatitis probably 2nd Gallstones -as above 4. BMI 29 -diet and exercise optimization Thank you, Problems: Subjective 24 Hr Interval Summary s/p ERCP & sphincterotomy but no stent placement. Transaminitis. No am/lipase tested. Min abdominal pain. Bowel function. No fevers, chills, sob, congested cough, n/v/d/dysuria, valladares, dizziness, cp, palpitations. Exam/Review of Systems Vital Signs Vitals Vital Signs Date Time Temp Pulse Resp B/P Pulse Ox O2 Delivery O2 Flow Rate FiO2 06/01/17 08:00 98.1 65 20 110/72 97 05/31/17 17:59 Room Air Intake and Output 05/31/17 05/31/17 06/01/17 15:00 23:00 07:00 Intake Total 1050 ml 1500 ml Balance 1050 ml 1500 ml Exam Free Text/Dictation Constitutional: alert, obese, oriented, No distress Psych: nl mood/affect, No anxiety, No confusion Head: atraumatic, normocephalic, No hematomas Eyes: EOMI, PERRL, nl sclera, No icteric ENMT: mucosa pink and moist, nl external ears & nose, nl lips & teeth Neck: non-tender, supple, No jvd Respiratory: normal air movement, No congested cough, No labored breathing Cardiovascular: regular rate and rhythm, No edema Gastrointestinal: soft, min tenderness (min epigastric and ruq without murphys) , No distended, No rebound or guarding Musculoskeletal: nl extremities to inspection, nl gait and stance, No joint tenderness Extremities: normal pulses, No calf tenderness, No cyanosis, No edema Neurological: nl mental status, nl speech, nl strength Skin: nl turgor, No diaphoresis, No ecchymosis, No rash or lesions Lymph: nl lymph nodes, nontender Results Result Diagram: 06/01/17 0525 06/01/17 0525 FIDEL BRAGA MD Jun 01, 2017 09:44
[2017-06-01] MEDS: morphine 4 MG/ML VIAL IV PRN ×2 (10:02→21:43)
--- NOTE | 2017-06-01 11:59 | PN ---
Date/Time of Note Date/Time of Note DATE: 06/01/17 TIME: 11:56 Assessment/Plan VTE Prophylaxis VTE Prophylaxis Intervention: SCD's Lines/Catheters IV C[facility]ter Type (from [facility]): Peripheral IV Urinary Cath still in place: No Assessment/Plan Chief Complaint/Hosp Course Assessment plan 1. Abdominal pain. Patient noted with choledocholithiasis with also pancreatitis. Continue IV fluids. Patient status post ERCP with stone removal. Continue with analgesics. Tentative plan for laparoscopic cholecystectomy. Will follow up. 2. Transaminitis likely secondary to #1. Monitor level. Anticipate improvement of this issue within the next couple days. 3. Pancreatitis. Lipase level downtrending. Monitor for now. Advance diet per surgeon/supervisor order takers Disposition plan: Tentative plan for laparoscopic cholecystectomy. Continue with analgesics and IV hydration for now. Discussed plan of care with Dr. Buck Problems: Subjective 24 Hr Interval Summary Free Text/Dictation still with reports of abd pain more on right upper abd quadrant Exam/Review of Systems Vital Signs Vitals Vital Signs Date Time Temp Pulse Resp B/P Pulse Ox O2 Delivery O2 Flow Rate FiO2 06/01/17 08:00 98.1 65 20 110/72 97 05/31/17 17:59 Room Air Intake and Output 05/31/17 05/31/17 06/01/17 15:00 23:00 07:00 Intake Total 1050 ml 1500 ml Balance 1050 ml 1500 ml Exam Constitutional: alert, oriented Psych: nl mood/affect Neck: supple Respiratory: clear to auscultation, normal air movement Cardiovascular: regular rate and rhythm Gastrointestinal: soft, tender (more RUQ ) 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, nl mental status, nl speech Skin: nl turgor Results Result Diagram: 06/01/17 0525 06/01/17 0525 Results 24 hrs Laboratory Tests Test 05/31/17 13:17 06/01/17 05:25 Urine Test NEGATIVE White Blood Count 5.2 Red Blood Count 4.12 L Hemoglobin 11.8 L Hematocrit 35.0 L Mean Corpuscular Volume 85.0 Mean Corpuscular Hemoglobin 28.6 L Mean Corpuscular Hemoglobin Concent 33.7 Red Cell Distribution Width 11.9 Platelet Count 246 Mean Platelet Volume 9.3 Neutrophils % 78.1 H Lymphocytes % 12.2 L Monocytes % 8.7 Eosinophils % 0.4 Basophils % 0.2 Nucleated Red Blood Cells % 0.0 Neutrophils # 4.0 Lymphocytes # 0.6 L Monocytes # 0.5 Eosinophils # 0.0 Basophils # 0.0 Nucleated Red Blood Cells # 0.0 Sodium Level 139 Potassium Level 3.7 Chloride Level 104 Carbon Dioxide Level 27 Anion Gap 12 Blood Urea Nitrogen 4 L Creatinine 0.52 Glucose Level 145 # Calcium Level 9.1 Total Bilirubin 0.9 Direct Bilirubin 0.40 #H Indirect Bilirubin 0.5 Aspartate Amino Transf (AST/SGOT) 284 H Alanine Aminotransferase (ALT/SGPT) 165 H Alkaline Phosphatase 165 #H Total Protein 7.3 Albumin 3.9 Globulin 3.40 H Albumin/Globulin Ratio 1.14 Medications Medications Current Medications Ondansetron HCl (Zofran Inj) 4 mg Q6H PRN IV NAUSEA AND/OR VOMITING Last administered on 05/31/17 18:45; Admin Dose 4 MG; Start 05/28/17 at 21:30 Morphine Sulfate 4 mg 4 mg Q4H PRN IV PAIN LEVEL 6-10 Last administered on 06/01 10:02; Admin Dose 4 MG; Start 05/28/17 at 21:30 Dextrose/Sodium Chloride 1,000 ml @ 100 mls/hr Q10H IV Last administered on 10:02; Admin Dose 100 MLS/HR; Start 05/28/17 at 21:30 Cefazolin Sodium (Ancef 1 Gm/50 ml (Pmx)) 50 ml @ 100 mls/hr Q8 IVPB Last administered on 06/01/17 05:13; Admin Dose 100 MLS/HR; Start 05/31/17 at 22:00 Ketorolac Tromethamine (Toradol) 30 mg Q6H PRN IV PAIN Last administered on 20:41; Admin Dose 30 MG; Start 05/31/17 at 20:30; Stop 06/03/17 at 20:29 Acetaminophen/ Hydrocodone Bitart ([place] (10/325)) 1 tab Q4H PRN PO PAIN Last administered on 05/31/17 21:26; Admin Dose 1 TAB; Start 05/31/17 at 20:30 Metoclopramide HCl (Reglan) 10 mg Q6H PRN IV NAUSEA AND/OR VOMITING Last administered on 9/29/17at 21:25; Admin Dose 10 MG; Start 05/31/17 at 21:30 ALDO DRAKE Jun 01, 2017 11:59
[2017-06-01 14:00] VITALS: BP 118/77; RESP 21
[2017-06-01 20:55] VITALS: BP 121/79; RESP 16
[2017-06-02 02:50] VITALS: BP 125/86; RESP 16
[2017-06-02 05:31] LABS: BASOPHILS % 0.2 % (0.0-2.0); EOSINOPHILS # 0.3 10^3/ul (0.0-0.5); EOSINOPHILS % 5.5 % (0.0-7.0); HEMATOCRIT 34.6 % (37.0-47.0); HEMOGLOBIN 11.3 g/dl (12.0-16.0); LYMPHOCYTES # 1.1 10^3/ul (0.8-2.9); LYMPHOCYTES % 23.5 % (15.0-51.0); MEAN CORPUSCULAR HEMOGLOBIN 28.8 pg (29.0-33.0); MEAN CORPUSCULAR HGB CONC 32.7 g/dl (32.0-37.0); MEAN PLATELET VOLUME 9.6 fl (7.4-10.4); MONOCYTE # 0.4 10^3/ul (0.3-0.9); MONOCYTES % 8.9 % (0.0-11.0); NEUTROPHIL # 2.8 10^3/ul (1.6-7.5); NEUTROPHILS % 61.5 % (39.0-77.0); PLATELET COUNT 243 10^3/UL (140-415); RED BLOOD COUNT 3.93 10^6/ul (4.20-5.40); RED CELL DISTRIBUTION WIDTH 12.2 % (11.5-14.5); WHITE BLOOD COUNT 4.5 10^3/ul (4.8-10.8)
[2017-06-02 06:04] LABS: ALBUMIN 3.4 g/dl (3.3-4.9); BILIRUBIN,INDIRECT 0.4 mg/dl (0-1.1); BILIRUBIN,TOTAL 0.4 mg/dl (0.2-1.3); CREATININE 0.55 mg/dl (0.44-1.00); TOTAL PROTEIN 7.2 g/dl (6.1-8.1)
[2017-06-02] MEDS: CEFAZOLIN 1 GM/50 ML (PMX) 50 ML IVPB SCH ×3 (06:07→22:27)
[2017-06-02] MEDS: morphine 4 MG/ML VIAL IV PRN ×3 (06:49→20:21)
[2017-06-02 08:00] VITALS: BP 113/70; RESP 20
[2017-06-02] MEDS: DEXTROSE 5%-0.45% NACL 1,000 ML IV SCH (10:00)
[2017-06-02] MEDS: ONDANSETRON 4 MG INJ IV PRN (11:50)
--- NOTE | 2017-06-02 12:40 | PN ---
Date/Time of Note Date/Time of Note DATE: 06/02/17 TIME: 12:35 Assessment/Plan VTE Prophylaxis VTE Prophylaxis Intervention: SCD's Lines/Catheters IV C[facility] Type (from [facility]): Peripheral IV Urinary Cath still in place: No Assessment/Plan Chief Complaint/Hosp Course Summary of Assessment and Plan Assessment: Gallstone pancreatitis/resolved Choledocholithiasis Post ERCP with stone removal Cholelithiasis Awaiting laparoscopic cholecystectomy Plan: Continue present medical regimen GI damian We will sign off and follow upon request Subjective: Course reviewed with nursing staff Patient interviewed and examined All labs, imaging and other results reviewed The patient reports feeling well Awaiting decision on timing of cholecystectomy I will sign off and follow upon request Exam: General: well developed, well nourished, alert and oriented x3 , in no acute distress Skin: Otherwise no lesions, positive stigmata chronic liver disease, no evidence of bleeding diathesis Lymphatic: No palpable lymphadenopathy HEENT: No lesions Cardiovascular: Heart: Regular rate and rhythm, no murmurs, gallops or rubs. Peripheral pulses present within normal limits, no cyanosis, clubbing or edemas. No pulsatile abdominal mass Respiratory: Lungs clear to auscultation and percussion, no wheezing, no rubs Gastrointestinal and Liver: Abdomen: Soft, non tender, mildly distended, no hernias, no masses, no organomegaly, no ascites, no guarding, no rebound tenderness, normoactive bowel sounds. Extremities: No cyanosis, clubbing, or edema. Diagnostic Studies: Available data and images were reviewed personally. See reports. Significant results and findings are addressed here or in the assessment and plan. Problems: Exam/Review of Systems Vital Signs Vitals Vital Signs Date Time Temp Pulse Resp B/P Pulse Ox O2 Delivery O2 Flow Rate FiO2 06/02/17 08:00 98.1 56 20 113/70 91 05/31/17 17:59 Room Air Intake and Output 06/01/17 06/01/17 06/02/17 15:00 23:00 07:00 Intake Total 250 ml 1850 ml 1700 ml Balance 250 ml 1850 ml 1700 ml Results Result Diagram: 06/02/17 0458 06/02/17 0458 Results 24 hrs Laboratory Tests Test 06/02/17 04:58 White Blood Count 4.5 L Red Blood Count 3.93 L Hemoglobin 11.3 L Hematocrit 34.6 L Mean Corpuscular Volume 88.0 Mean Corpuscular Hemoglobin 28.8 L Mean Corpuscular Hemoglobin Concent 32.7 Red Cell Distribution Width 12.2 Platelet Count 243 Mean Platelet Volume 9.6 Neutrophils % 61.5 Lymphocytes % 23.5 Monocytes % 8.9 Eosinophils % 5.5 Basophils % 0.2 Nucleated Red Blood Cells % 0.0 Neutrophils # 2.8 Lymphocytes # 1.1 Monocytes # 0.4 Eosinophils # 0.3 Basophils # 0.0 Nucleated Red Blood Cells # 0.0 Sodium Level 140 Potassium Level 3.0 L Chloride Level 107 Carbon Dioxide Level 27 Anion Gap 9 Blood Urea Nitrogen 2 L Creatinine 0.55 Glucose Level 103 # Calcium Level 9.0 Total Bilirubin 0.4 Direct Bilirubin 0.00 # Indirect Bilirubin 0.4 Aspartate Amino Transf (AST/SGOT) 198 H Alanine Aminotransferase (ALT/SGPT) 202 H Alkaline Phosphatase 162 H Total Protein 7.2 Albumin 3.4 Lipase 959 H Medications Medications Current Medications Ondansetron HCl (Zofran Inj) 4 mg Q6H PRN IV NAUSEA AND/OR VOMITING Last administered on 06/02/17 11:50; Admin Dose 4 MG; Start 05/28/17 at 21:30 Morphine Sulfate 4 mg 4 mg Q4H PRN IV PAIN LEVEL 6-10 Last administered on 06/02 11:50; Admin Dose 4 MG; Start 05/28/17 at 21:30 Dextrose/Sodium Chloride 1,000 ml @ 100 mls/hr Q10H IV Last administered on 10:00; Admin Dose 100 MLS/HR; Start 05/28/17 at 21:30 Cefazolin Sodium (Ancef 1 Gm/50 ml (Pmx)) 50 ml @ 100 mls/hr Q8 IVPB Last administered on 06/02/17 06:07; Admin Dose 100 MLS/HR; Start 05/31/17 at 22:00 Ketorolac Tromethamine (Toradol) 30 mg Q6H PRN IV PAIN Last administered on 20:41; Admin Dose 30 MG; Start 05/31/17 at 20:30; Stop 06/03/17 at 20:29 Acetaminophen/ Hydrocodone Bitart ([place] (10/325)) 1 tab Q4H PRN PO PAIN Last administered on 05/31/17 21:26; Admin Dose 1 TAB; Start 05/31/17 at 20:30 Metoclopramide HCl (Reglan) 10 mg Q6H PRN IV NAUSEA AND/OR VOMITING Last administered on 05/31/17 21:25; Admin Dose 10 MG; Start 05/31/17 at 21:30 GURDEEP QUINONEZ MD Jun 02, 2017 12:40
[2017-06-02] MEDS ORDERED: POTASSIUM CHLORIDE (SR) 20 MEQ TAB PO STA (13:27)
--- NOTE | 2017-06-02 13:36 | PN ---
Date/Time of Note Date/Time of Note DATE: 06/02/17 TIME: 13:33 Assessment/Plan VTE Prophylaxis VTE Prophylaxis Intervention: heparin Lines/Catheters IV [facility]ter Type (from [facility]): Peripheral IV Urinary Cath still in place: No Assessment/Plan Problems: (1) Hypokalemia Status: Acute Comment: Replace potassium (2) Gallstone pancreatitis Status: Acute Comment: Patient's lipase is down a little bit. Continue to follow this along. Patient needs to have laparoscopic cholecystectomy done which I suspect will be required sooner rather than later Subjective 24 Hr Interval Summary Free Text/Dictation She reports right upper quadrant pain which is being moderately controlled with opiate pain relieving medications Constitutional: no complaints Respiratory: no complaints Cardiovascular: no complaints Gastrointestinal: pain Exam/Review of Systems Vital Signs Vitals Vital Signs Date Time Temp Pulse Resp B/P Pulse Ox O2 Delivery O2 Flow Rate FiO2 06/02/17 08:00 98.1 56 20 113/70 91 05/31/17 17:59 Room Air Intake and Output 06/01/17 06/01/17 06/02/17 15:00 23:00 07:00 Intake Total 250 ml 1850 ml 1700 ml Balance 250 ml 1850 ml 1700 ml Exam Constitutional: alert, oriented Neck: non-tender, supple Respiratory: clear to auscultation, normal air movement Cardiovascular: nl pulses, regular rate and rhythm Gastrointestinal: soft Results Result Diagram: 06/02/17 0458 06/02/17 0458 Results 24 hrs Laboratory Tests Test 06/02/17 04:58 White Blood Count 4.5 L Red Blood Count 3.93 L Hemoglobin 11.3 L Hematocrit 34.6 L Mean Corpuscular Volume 88.0 Mean Corpuscular Hemoglobin 28.8 L Mean Corpuscular Hemoglobin Concent 32.7 Red Cell Distribution Width 12.2 Platelet Count 243 Mean Platelet Volume 9.6 Neutrophils % 61.5 Lymphocytes % 23.5 Monocytes % 8.9 Eosinophils % 5.5 Basophils % 0.2 Nucleated Red Blood Cells % 0.0 Neutrophils # 2.8 Lymphocytes # 1.1 Monocytes # 0.4 Eosinophils # 0.3 Basophils # 0.0 Nucleated Red Blood Cells # 0.0 Sodium Level 140 Potassium Level 3.0 L Chloride Level 107 Carbon Dioxide Level 27 Anion Gap 9 Blood Urea Nitrogen 2 L Creatinine 0.55 Glucose Level 103 # Calcium Level 9.0 Total Bilirubin 0.4 Direct Bilirubin 0.00 # Indirect Bilirubin 0.4 Aspartate Amino Transf (AST/SGOT) 198 H Alanine Aminotransferase (ALT/SGPT) 202 H Alkaline Phosphatase 162 H Total Protein 7.2 Albumin 3.4 Lipase 959 H Medications Medications Current Medications Ondansetron HCl (Zofran Inj) 4 mg Q6H PRN IV NAUSEA AND/OR VOMITING Last administered on 06/02/17 11:50; Admin Dose 4 MG; Start 05/28/17 at 21:30 Morphine Sulfate 4 mg 4 mg Q4H PRN IV PAIN LEVEL 6-10 Last administered on 06/02 11:50; Admin Dose 4 MG; Start 05/28/17 at 21:30 Dextrose/Sodium Chloride 1,000 ml @ 100 mls/hr Q10H IV Last administered on 10:00; Admin Dose 100 MLS/HR; Start 05/28/17 at 21:30 Cefazolin Sodium (Ancef 1 Gm/50 ml (Pmx)) 50 ml @ 100 mls/hr Q8 IVPB Last administered on 06/02/17 13:29; Admin Dose 100 MLS/HR; Start 05/31/17 at 22:00 Ketorolac Tromethamine (Toradol) 30 mg Q6H PRN IV PAIN Last administered on 20:41; Admin Dose 30 MG; Start 05/31/17 at 20:30; Stop 06/03/17 at 20:29 Acetaminophen/ Hydrocodone Bitart (Frannie (10/325)) 1 tab Q4H PRN PO PAIN Last administered on 05/31/17 21:26; Admin Dose 1 TAB; Start 05/31/17 at 20:30 Metoclopramide HCl (Reglan) 10 mg Q6H PRN IV NAUSEA AND/OR VOMITING Last administered on 05/31/17 21:25; Admin Dose 10 MG; Start 05/31/17 at 21:30 TOMÁS SANCHEZ MD Jun 02, 2017 13:36
[2017-06-02 14:00] VITALS: BP 130/85; RESP 20
[2017-06-02] MEDS ORDERED: POTASSIUM CHLORIDE 250 ML IVPB ONE (14:30)
[2017-06-02 21:00] VITALS: BP 132/73; RESP 16
--- NOTE | 2017-06-02 22:41 | PN ---
Date/Time of Note Date/Time of Note DATE: 06/02/17 TIME: 22:39 Assessment/Plan Lines/Catheters IV Catheter Type (from [facility]): Peripheral IV Eugene in Place (from [facility]): No Assessment/Plan Chief Complaint/Hosp Course 1. Abdominal pain with Cholelithiasis and Choledocholithiasis and Pancreatitis ; s/p ERCP stone removal, sphincterotomy but no stent placement -trend labs -ivf -abx -eventual lap branden (outpt vs inpt) after pancreatitis improves 2. Dilated CBD with Transaminitis, Choledocholithiasis s/p ercp/sphincterotomy -as above 3. Pancreatitis probably 2nd Gallstones -as above 4. BMI 29 -diet and exercise optimization Thank you, Problems: Subjective 24 Hr Interval Summary Lipase improving but still elevated. s/p ERCP & sphincterotomy but no stent placement. Transaminitis. Min abdominal pain. Bowel function. No fevers, chills, sob, congested cough, n/v/d/dysuria, valladares, dizziness, cp, palpitations. Exam/Review of Systems Vital Signs Vitals Vital Signs Date Time Temp Pulse Resp B/P Pulse Ox O2 Delivery O2 Flow Rate FiO2 06/02/17 21:00 97.9 64 16 132/73 93 05/31/17 17:59 Room Air Intake and Output 06/01/17 06/01/17 06/02/17 15:00 23:00 07:00 Intake Total 250 ml 1850 ml 1700 ml Balance 250 ml 1850 ml 1700 ml Exam Free Text/Dictation Constitutional: alert, obese, oriented, No distress Psych: nl mood/affect, No anxiety, No confusion Head: atraumatic, normocephalic, No hematomas Eyes: EOMI, PERRL, nl sclera, No icteric ENMT: mucosa pink and moist, nl external ears & nose, nl lips & teeth Neck: non-tender, supple, No jvd Respiratory: normal air movement, No congested cough, No labored breathing Cardiovascular: regular rate and rhythm, No edema Gastrointestinal: soft, min tenderness (min epigastric and ruq without murphys) , No distended, No rebound or guarding Musculoskeletal: nl extremities to inspection, nl gait and stance, No joint tenderness Extremities: normal pulses, No calf tenderness, No cyanosis, No edema Neurological: nl mental status, nl speech, nl strength Skin: nl turgor, No diaphoresis, No ecchymosis, No rash or lesions Lymph: nl lymph nodes, nontender Results Result Diagram: 06/02/17 0458 06/02/17 0458 FIDEL BRAGA MD Jun 02, 2017 22:41
[2017-06-03] MEDS: DEXTROSE 5%-0.45% NACL 1,000 ML IV SCH ×3 (00:11→15:02)
[2017-06-03 02:49] VITALS: BP 126/79; RESP 16
[2017-06-03 03:52] VITALS: PULSE 56
[2017-06-03] MEDS: CEFAZOLIN 1 GM/50 ML (PMX) 50 ML IVPB SCH ×3 (05:25→22:01)
[2017-06-03 05:28] LABS: BASOPHILS % 0.2 % (0.0-2.0); EOSINOPHILS # 0.4 10^3/ul (0.0-0.5); EOSINOPHILS % 8.2 % (0.0-7.0); HEMATOCRIT 34.1 % (37.0-47.0); HEMOGLOBIN 11.3 g/dl (12.0-16.0); LYMPHOCYTES # 1.5 10^3/ul (0.8-2.9); LYMPHOCYTES % 34.5 % (15.0-51.0); MEAN CORPUSCULAR HEMOGLOBIN 29.4 pg (29.0-33.0); MEAN CORPUSCULAR HGB CONC 33.1 g/dl (32.0-37.0); MEAN CORPUSCULAR VOLUME 88.8 fl (82.0-101.0); MEAN PLATELET VOLUME 9.6 fl (7.4-10.4); MONOCYTE # 0.4 10^3/ul (0.3-0.9); MONOCYTES % 8.9 % (0.0-11.0); NEUTROPHILS % 47.5 % (39.0-77.0); PLATELET COUNT 240 10^3/UL (140-415); RED BLOOD COUNT 3.84 10^6/ul (4.20-5.40); RED CELL DISTRIBUTION WIDTH 12.1 % (11.5-14.5); WHITE BLOOD COUNT 4.3 10^3/ul (4.8-10.8)
[2017-06-03] MEDS: morphine 4 MG/ML VIAL IV PRN ×2 (05:33→14:58)
[2017-06-03 05:59] LABS: ANION GAP 12 (8-16); CALCIUM 9.4 mg/dl (8.4-10.2); CARBON DIOXIDE 28 mmol/L (21-31); CHLORIDE 105 mmol/L (97-110); CREATININE 0.51 mg/dl (0.44-1.00); GLUCOSE 103 mg/dl (70-220); POTASSIUM 3.6 mmol/L (3.5-5.1); SODIUM 141 mmol/L (135-144)
[2017-06-03 06:02] LABS: BLOOD UREA NITROGEN < 2 mg/dl (7-20)
[2017-06-03 07:29] VITALS: BP 149/81; RESP 18
--- NOTE | 2017-06-03 13:22 | PN ---
Date/Time of Note Date/Time of Note DATE: 06/03/17 TIME: 13:22 Assessment/Plan VTE Prophylaxis VTE Prophylaxis Intervention: ambulation Lines/Catheters IV Catheter Type (from [facility]): Peripheral IV Urinary Cath still in place: No Assessment/Plan Chief Complaint/Hosp Course 36-year-old female presented to the ER for evaluation of abdominal pain of 2 days' duration. 1.Gallstone pancreatitis. Improving -Advance diet as tolerated. Continue to trend lipase. -Patient would need eventual cholecystectomy and recommended inpatient surgical intervention. Of note, his lipase has been trending down nicely and we will defer surgery colleagues regarding plan for cholecystectomy. 2. Choledocholithiasis -Status post ERCP with stone removal. Plan: Follow-up with recommendation from surgery regarding plan for cholecystectomy as inpatient. Patient was seen in collaboration with . Problems: Subjective 24 Hr Interval Summary Free Text/Dictation Overall, patient doing well. Remains afebrile. Abdominal pain improved. Exam/Review of Systems Vital Signs Vitals Vital Signs Date Time Temp Pulse Resp B/P Pulse Ox O2 Delivery O2 Flow Rate FiO2 06/03/17 07:29 98.2 51 18 149/81 97 05/31/17 17:59 Room Air Intake and Output 06/02/17 06/02/17 06/03/17 15:00 23:00 07:00 Intake Total 750 ml 1280 ml 1270 ml Balance 750 ml 1280 ml 1270 ml Exam General: Well developed,adequately built, not in any acute distress . HEENT: Normocephalic, Atraumatic, No laceration or hematoma; Eyes: PEERL, Conjunctiva clear, Anicteric sclera Neck: Supple without any lymphadenopathy, nontender, no JVD, no carotid bruits, trachea midline, no thyromegaly Cardiac: S1, S2 auscultated, regular rhythm and rate, no mumurs or gallop Pulmonary: Normal respiratory effort. Chest clear to auscultation bilaterally, no adventitious breath sounds GI: Slight tenderness to right upper quadrant. Otherwise abdomen normal to inspection. Soft, non- distended, no masses, no rebound tenderness or guarding. Bowel sounds active on all four quadrants Genitourinary: Deferred Extremities: No cyanosis, clubbing, or edema. Pulses [2+] bilaterally. Full ROM on all four extremities. No focal weakness appreciated. Neurologic: Alert to person, place, time, and situation. Affect appropriate, intact sensation. Skin: Clean,dry, and intact. No ecchymosis, no rashes, or lesions Results Result Diagram: 06/03/17 0505 06/03/17 0505 Results 24 hrs Laboratory Tests Test 06/03/17 05:05 White Blood Count 4.3 L Red Blood Count 3.84 L Hemoglobin 11.3 L Hematocrit 34.1 L Mean Corpuscular Volume 88.8 Mean Corpuscular Hemoglobin 29.4 Mean Corpuscular Hemoglobin Concent 33.1 Red Cell Distribution Width 12.1 Platelet Count 240 Mean Platelet Volume 9.6 Neutrophils % 47.5 Lymphocytes % 34.5 Monocytes % 8.9 Eosinophils % 8.2 H Basophils % 0.2 Nucleated Red Blood Cells % 0.0 Neutrophils # 2.0 Lymphocytes # 1.5 Monocytes # 0.4 Eosinophils # 0.4 Basophils # 0.0 Nucleated Red Blood Cells # 0.0 Sodium Level 141 Potassium Level 3.6 Chloride Level 105 Carbon Dioxide Level 28 Anion Gap 12 Blood Urea Nitrogen < 2 L Creatinine 0.51 Glucose Level 103 Calcium Level 9.4 Lipase 677 H Medications Medications Current Medications Ondansetron HCl (Zofran Inj) 4 mg Q6H PRN IV NAUSEA AND/OR VOMITING Last administered on 06/02/17 11:50; Admin Dose 4 MG; Start 05/28/17 at 21:30 Morphine Sulfate 4 mg 4 mg Q4H PRN IV PAIN LEVEL 6-10 Last administered on 06/03 05:33; Admin Dose 4 MG; Start 05/28/17 at 21:30 Dextrose/Sodium Chloride 1,000 ml @ 100 mls/hr Q10H IV Last administered on 00:11; Admin Dose 100 MLS/HR; Start 05/28/17 at 21:30 Cefazolin Sodium (Ancef 1 Gm/50 ml (Pmx)) 50 ml @ 100 mls/hr Q8 IVPB Last administered on 06/03/17 05:25; Admin Dose 100 MLS/HR; Start 05/31/17 at 22:00 Ketorolac Tromethamine (Toradol) 30 mg Q6H PRN IV PAIN Last administered on 20:41; Admin Dose 30 MG; Start 05/31/17 at 20:30; Stop 06/03/17 at 20:29 Acetaminophen/ Hydrocodone Bitart (Bryan ()) 1 tab Q4H PRN PO PAIN Last administered on 05/31/17 21:26; Admin Dose 1 TAB; Start 05/31/17 at 20:30 Metoclopramide HCl (Reglan) 10 mg Q6H PRN IV NAUSEA AND/OR VOMITING Last administered on 05/31/17 21:25; Admin Dose 10 MG; Start 05/31/17 at 21:30 NEIL GUERRA NP Jun 03, 2017 13:22
--- NOTE | 2017-06-03 14:06 | PN ---
Date/Time of Note Date/Time of Note DATE: 06/03/17 TIME: 14:00 Assessment/Plan Lines/Catheters IV Catheter Type (from [facility]): Peripheral IV Eugene in Place (from [facility]): No Assessment/Plan Chief Complaint/Hosp Course 1. Abdominal pain with Cholelithiasis and Choledocholithiasis and Pancreatitis ; s/p ERCP stone removal, sphincterotomy but no stent placement; Lipase still elevated still with pain -trend labs -ivf -abx -eventual lap branden (outpt vs inpt) after pancreatitis improves 2. Dilated CBD with Transaminitis, Choledocholithiasis s/p ercp/sphincterotomy -as above 3. Pancreatitis probably 2nd Gallstones: lipase elevated -as above 4. BMI 29 -diet and exercise optimization Thank you. Patient seen and examined in collaboration with Dr. Nii Bain. Problems: Subjective 24 Hr Interval Summary Pain improved but still persistent. Tolerating clears. No fevers, chills, sob, congested cough, cp, palpitations, n/v/d/dysuria, valladares, dizziness. Lipase still elevated. Exam/Review of Systems Vital Signs Vitals Vital Signs Date Time Temp Pulse Resp B/P Pulse Ox O2 Delivery O2 Flow Rate FiO2 06/04/17 07:50 97.9 51 16 134/81 96 05/31/17 17:59 Room Air Intake and Output 06/03/17 06/03/17 06/04/17 15:00 23:00 07:00 Intake Total 500 ml 2540 ml 1650 ml Balance 500 ml 2540 ml 1650 ml Exam Free Text/Dictation Constitutional: alert, obese, oriented, No distress Psych: nl mood/affect, No anxiety, No confusion Head: atraumatic, normocephalic, No hematomas Eyes: EOMI, PERRL, nl sclera, No icteric ENMT: mucosa pink and moist, nl external ears & nose, nl lips & teeth Neck: non-tender, supple, No jvd Respiratory: normal air movement, No congested cough, No labored breathing Cardiovascular: regular rate and rhythm, No edema Gastrointestinal: soft, no tenderness, no murphys, No distended, No rebound or guarding Musculoskeletal: nl extremities to inspection, nl gait and stance, No joint tenderness Extremities: normal pulses, No calf tenderness, No cyanosis, No edema Neurological: nl mental status, nl speech, nl strength Skin: nl turgor, No diaphoresis, No ecchymosis, No rash or lesions Lymph: nl lymph nodes, nontender Results Result Diagram: 06/04/17 0454 06/04/17 0454 IVAN COLLAZO NP Jun 03, 2017 14:06
[2017-06-03 14:24] VITALS: BP 128/84; RESP 16
[2017-06-03 20:00] VITALS: BP 134/91; RESP 19
[2017-06-04] VITALS (20 sets, daily range): BP systolic 122–152; BP diastolic 74–96; PULSE 56–80; RESP 11–19
[2017-06-04] MEDS: DEXTROSE 5%-0.45% NACL 1,000 ML IV SCH ×3 (03:11→22:54)
[2017-06-04] MEDS: CEFAZOLIN 1 GM/50 ML (PMX) 50 ML IVPB SCH ×3 (05:40→22:21)
[2017-06-04 05:58] LABS: BASOPHILS % 0.2 % (0.0-2.0); EOSINOPHILS # 0.3 10^3/ul (0.0-0.5); EOSINOPHILS % 6.2 % (0.0-7.0); HEMATOCRIT 35.1 % (37.0-47.0); HEMOGLOBIN 11.7 g/dl (12.0-16.0); LYMPHOCYTES # 1.1 10^3/ul (0.8-2.9); LYMPHOCYTES % 27.7 % (15.0-51.0); MEAN CORPUSCULAR HEMOGLOBIN 29.6 pg (29.0-33.0); MEAN CORPUSCULAR HGB CONC 33.3 g/dl (32.0-37.0); MEAN CORPUSCULAR VOLUME 88.9 fl (82.0-101.0); MEAN PLATELET VOLUME 9.9 fl (7.4-10.4); MONOCYTE # 0.3 10^3/ul (0.3-0.9); MONOCYTES % 8.4 % (0.0-11.0); NEUTROPHIL # 2.3 10^3/ul (1.6-7.5); NEUTROPHILS % 57.3 % (39.0-77.0); PLATELET COUNT 271 10^3/UL (140-415); RED BLOOD COUNT 3.95 10^6/ul (4.20-5.40); RED CELL DISTRIBUTION WIDTH 12.1 % (11.5-14.5)
[2017-06-04 06:36] LABS: CALCIUM 9.4 mg/dl (8.4-10.2); CREATININE 0.57 mg/dl (0.44-1.00); POTASSIUM 3.9 mmol/L (3.5-5.1)
[2017-06-04] MEDS ORDERED: ACETAMINOPHEN 1000 MG/100 ML IVPB ONE (07:00)
[2017-06-04] MEDS: morphine 4 MG/ML VIAL IV PRN (10:23)
--- NOTE | 2017-06-04 11:20 | PN ---
Date/Time of Note Date/Time of Note DATE: 06/04/17 TIME: 11:20 Assessment/Plan VTE Prophylaxis VTE Prophylaxis Intervention: ambulation Lines/Catheters IV Catheter Type (from [facility]): Peripheral IV Urinary Cath still in place: No Assessment/Plan Chief Complaint/Hosp Course 36-year-old female presented to the ER for evaluation of abdominal pain of 2 days' duration. 1.Gallstone pancreatitis. Improving. Lipase almost getting normalized. -Advance diet as tolerated. Continue to trend lipase. -Patient would need eventual cholecystectomy and recommended inpatient surgical intervention. Of note, his lipase has been trending down nicely and we will defer surgery colleagues regarding plan for cholecystectomy. 2. Choledocholithiasis -Status post ERCP with stone removal. Plan: Follow-up with recommendation from surgery regarding plan for cholecystectomy as inpatient. Patient was seen in collaboration with . Problems: Subjective 24 Hr Interval Summary Free Text/Dictation Patient with overall improvement in abdominal pain. She has been tolerating diet. Exam/Review of Systems Vital Signs Vitals Vital Signs Date Time Temp Pulse Resp B/P Pulse Ox O2 Delivery O2 Flow Rate FiO2 06/04/17 07:50 97.9 51 16 134/81 96 05/31/17 17:59 Room Air Intake and Output 06/03/17 06/03/17 06/04/17 15:00 23:00 07:00 Intake Total 500 ml 2540 ml 1650 ml Balance 500 ml 2540 ml 1650 ml Exam General: Well developed,adequately built, not in any acute distress . HEENT: Normocephalic, Atraumatic, No laceration or hematoma; Eyes: PEERL, Conjunctiva clear, Anicteric sclera Neck: Supple without any lymphadenopathy, nontender, no JVD, no carotid bruits, trachea midline, no thyromegaly Cardiac: S1, S2 auscultated, regular rhythm and rate, no mumurs or gallop Pulmonary: Normal respiratory effort. Chest clear to auscultation bilaterally, no adventitious breath sounds GI: Slight tenderness to right upper quadrant. Otherwise abdomen normal to inspection. Soft, non- distended, no masses, no rebound tenderness or guarding. Bowel sounds active on all four quadrants Genitourinary: Deferred Extremities: No cyanosis, clubbing, or edema. Pulses [2+] bilaterally. Full ROM on all four extremities. No focal weakness appreciated. Neurologic: Alert to person, place, time, and situation. Affect appropriate, intact sensation. Skin: Clean,dry, and intact. No ecchymosis, no rashes, or lesions Results Result Diagram: 06/04/17 0454 06/04/17 0454 Results 24 hrs Laboratory Tests Test 06/04/17 04:54 White Blood Count 4.0 L Red Blood Count 3.95 L Hemoglobin 11.7 L Hematocrit 35.1 L Mean Corpuscular Volume 88.9 Mean Corpuscular Hemoglobin 29.6 Mean Corpuscular Hemoglobin Concent 33.3 Red Cell Distribution Width 12.1 Platelet Count 271 Mean Platelet Volume 9.9 Neutrophils % 57.3 Lymphocytes % 27.7 Monocytes % 8.4 Eosinophils % 6.2 Basophils % 0.2 Nucleated Red Blood Cells % 0.0 Neutrophils # 2.3 Lymphocytes # 1.1 Monocytes # 0.3 Eosinophils # 0.3 Basophils # 0.0 Nucleated Red Blood Cells # 0.0 Sodium Level 144 Potassium Level 3.9 Chloride Level 106 Carbon Dioxide Level 28 Anion Gap 14 Blood Urea Nitrogen 2 L Creatinine 0.57 Glucose Level 107 Calcium Level 9.4 Lipase 441 H Medications Medications Current Medications Ondansetron HCl (Zofran Inj) 4 mg Q6H PRN IV NAUSEA AND/OR VOMITING Last administered on 06/02/17 11:50; Admin Dose 4 MG; Start 05/28/17 at 21:30 Morphine Sulfate 4 mg 4 mg Q4H PRN IV PAIN LEVEL 6-10 Last administered on 06/04 10:23; Admin Dose 4 MG; Start 05/28/17 at 21:30 Dextrose/Sodium Chloride 1,000 ml @ 100 mls/hr Q10H IV Last administered on 03:11; Admin Dose 100 MLS/HR; Start 05/28/17 at 21:30 Cefazolin Sodium (Ancef 1 Gm/50 ml (Pmx)) 50 ml @ 100 mls/hr Q8 IVPB Last administered on 06/04/17 05:40; Admin Dose 100 MLS/HR; Start 05/31/17 at 22:00 Acetaminophen/ Hydrocodone Bitart (Canon (10)) 1 tab Q4H PRN PO PAIN Last administered on 05/31/17 21:26; Admin Dose 1 TAB; Start 05/31/17 at 20:30 Metoclopramide HCl (Reglan) 10 mg Q6H PRN IV NAUSEA AND/OR VOMITING Last administered on 05/31/17t 21:25; Admin Dose 10 MG; Start 05/31/17 at 21:30 NEIL GUERRA NP Jun 04, 2017 11:20
--- NOTE | 2017-06-04 12:11 | PN ---
Date/Time of Note Date/Time of Note DATE: 06/04/17 TIME: 12:04 Assessment/Plan Lines/Catheters IV Catheter Type (from [facility]): Peripheral IV Eugene in Place (from [facility]): No Assessment/Plan Chief Complaint/Hosp Course 1. Abdominal pain with Cholelithiasis and Choledocholithiasis and Pancreatitis ; s/p ERCP stone removal, sphincterotomy but no stent placement; Lipase improving still with intermittent ruq pain -trend labs -ivf -abx -eventual lap branden after pancreatitis improves 2. Dilated CBD with Transaminitis, Choledocholithiasis s/p ercp/sphincterotomy -as above 3. Pancreatitis probably 2nd Gallstones: lipase elevated -as above 4. BMI 29 -diet and exercise optimization Thank you. Patient seen and examined in collaboration with Dr. Nii Bain. Problems: Subjective 24 Hr Interval Summary Feels well. Intermittent right upper quadrant pain. No nausea, vomiting. Tolerating clear liquids. Lipase improving. No fevers, chills, sob, congested cough, valladares, dizziness. Exam/Review of Systems Vital Signs Vitals Vital Signs Date Time Temp Pulse Resp B/P Pulse Ox O2 Delivery O2 Flow Rate FiO2 06/04/17 07:50 97.9 51 16 134/81 96 05/31/17 17:59 Room Air Intake and Output 06/03/17 06/03/17 06/04/17 15:00 23:00 07:00 Intake Total 500 ml 2540 ml 1650 ml Balance 500 ml 2540 ml 1650 ml Exam Free Text/Dictation Constitutional: alert, obese, oriented, No distress Psych: nl mood/affect, anxiety, No confusion Head: atraumatic, normocephalic, No hematomas Eyes: EOMI, PERRL, nl sclera, No icteric ENMT: mucosa pink and moist, nl external ears & nose, nl lips & teeth Neck: non-tender, supple, No jvd Respiratory: normal air movement, No congested cough, No labored breathing Cardiovascular: regular rate and rhythm, No edema Gastrointestinal: soft, min tenderness (min ruq without murphys), No distended , No rebound or guarding Musculoskeletal: nl extremities to inspection, nl gait and stance, No joint tenderness Extremities: normal pulses, No calf tenderness, No cyanosis, No edema Neurological: nl mental status, nl speech, nl strength Skin: nl turgor, No diaphoresis, No ecchymosis, No rash or lesions Lymph: nl lymph nodes, nontender Results Result Diagram: 06/04/17 0454 06/04/17 0454 IVAN COLLAZO NP Jun 04, 2017 12:11
[2017-06-04] MEDS ORDERED: hydrALAzine 20 MG INJ IV PRN (16:00)
[2017-06-04] MEDS ORDERED: DIPHENHYDRAMINE 50 MG INJ IV PRN (16:00)
[2017-06-04] MEDS ORDERED: MEPERIDINE 25 MG INJ IV PRN (16:00)
[2017-06-04] MEDS ORDERED: HYDROmorphONE (0.2 MG/ML) 10ML SYG IV PRN ×2 (16:00)
[2017-06-04] MEDS ORDERED: OXYCODONE/ACETAMINOPHEN (5/325) TAB PO PRN ×2 (16:00)
[2017-06-04] MEDS ORDERED: ONDANSETRON 4 MG INJ IV PRN (16:00)
[2017-06-04] MEDS ORDERED: FENTAnyl 50 MCG/ML VIAL IV PRN ×3 (16:00)
[2017-06-04] MEDS ORDERED: METOCLOPRAMIDE 10 MG INJ IV PRN (16:00)
[2017-06-04] MEDS ORDERED: KETOROLAC 30 MG INJ IV PRN (16:00)
[2017-06-04] MEDS ORDERED: EPHEDrine SULFATE 50 MG/5 ML SYG IV PRN (16:00)
[2017-06-04] MEDS ORDERED: LABETALOL HCL 20MG INJ IV PRN (16:00)
[2017-06-04] MEDS ORDERED: LIDOCAINE 1% (STERILE-PAK) 30 ML INJ ONE (18:33)
[2017-06-04] MEDS ORDERED: BUPIVACAINE 0.5%/EPI (SDV) 30 ML INJ ONE (18:33)
[2017-06-04] MEDS ORDERED: ROCURONIUM 50 MG INJ ONE (18:36)
[2017-06-04] MEDS ORDERED: PROPOFOL 100 ML ONE (18:36)
[2017-06-04] MEDS ORDERED: LIDOCAINE 2% (SDV) 5 ML INJ ONE (18:37)
[2017-06-04] MEDS ORDERED: DEXAMETHASONE 4 MG/ML 1 ML INJ ONE (19:14)
[2017-06-04] MEDS ORDERED: ONDANSETRON 4 MG INJ ONE (19:15)
--- NOTE | 2017-06-04 20:10 | OPR ---
Date/Time of Note Date/Time of Note DATE: 06/04/17 TIME: 20:02 Operative Report Procedure Date: Jun 04, 2017 Preoperative Diagnosis . Postoperative Diagnosis . 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 Anesthesia Type: other Estimated Blood Loss: 10 - 50 ml's Transfusion none Specimen . Grafts/Implants none Complications none Procedure Description Preoperative Diagnosis: Symptomatic cholelithiasis Transaminitis Choledocholithiasis s/p ERCP Pancreatitis Abnormal liver BMI 29 Postoperative Diagnosis: Symptomatic cholelithiasis Transaminitis Choledocholithiasis s/p ERCP Pancreatitis Abnormal liver BMI 29 Operation(s) Performed: 1. 3 port laparoscopic cholecystectomy 2. Laparoscopic liver wedge resection biopsy 3. Local anesthetic injection, [id number] 4. Laparoscopic bilateral transversus abdominis plane block Surgeon: FIDEL BRAGA MD Anesthesia: general, local, & regional Anesthesiologist: Moe Gamez MD Estimated Blood Loss: 20 ml's Specimens: Liver Gallbladder Tubes/Drains: None Complications: None Pt Condition Post Procedure: stable Disposition: PACU Indications: 36-year-old female with gallstones, pancreatitis, choledocholithiasis and abdominal pain s/p ercp now here for cholecystectomy. Risks include but are not limited to bleeding, infection, abscess, seroma, damage to intestines, damage to the liver, damage to biliary tree, hernia formation, chronic pain, biloma, need for reoperations or further surgeries, MS , stroke, PE, DVT, pneumonia, organ failures, or even . Procedure Description: Patient was brought and placed supine on the operating table SCDs were placed, preoperative antibiotics were administered, all pressure points were well-padded , and after induction of anesthesia patient was prepped and draped in usual sterile fashion and timeout was performed. Incision was made in the supraumbilical region, Veress was safely inserted, and after a negative SIP test , abdomen was insufflated to 15mmHg. Veress was removed and 5mm port was safely inserted. Laparoscopy was performed with a 5 mm 30 scope. No injuries were identified. The liver looks somewhat abnormal color. Gallbladder is without evidence of infection. 12 mm port is placed in subxiphoid under direct visualization followed by another 5 mm port in the right upper quadrant. All port sites were injected with quarter percent Marcaine with epi and 1% lidocaine prior to any incisions. Bilateral transversus abdominis plane block was performed under laparoscopic visualization to aid with pain control intra-and postoperatively. Patient was placed in reverse Trendelenburg and right side up on gallbladder was retracted superolaterally. Using electrocautery and blunt dissection I was able to identify the cystic artery and cystic duct. The duct was dilated but tapered into the gallbladder. Full critical angle view was identified. Artery was clipped twice proximally and once distally and transected. The gallbladder was taken off the liver with electrocautery. Hemostasis was obtained. Gallbladder was placed in an Endo Catch bag and removed through the subxiphoid port site. There was complete hemostasis. Due to the abnormality of the liver decision was made to perform liver wedge resection which was done with electrocautery and scissor with complete hemostasis right after. The specimen was sent to pathology for further evaluation. 12 mm made port site fascia was closed with Endo Close of an 0 Vicryl in a [id number] manner. Ports and CO2 were removed under direct visualization. Next complete hemostasis. Wounds were thoroughly irrigated skin was closed with 4-0 Monocryl in subcuticular fashion. Dermabond was applied. Patient was extubated and transferred to recovery room in stable condition and all counts were correct and the end of the operation 2. FIDEL BRAGA MD Jun 04, 2017 20:10
[2017-06-04] MEDS: HYDROmorphONE (0.2 MG/ML) 10ML SYG IV PRN ×2 (21:38→21:45)
[2017-06-04] MEDS ORDERED: IBUPROFEN 800 MG TAB PO PRN (22:30)
[2017-06-05] MEDS: morphine 4 MG/ML VIAL IV PRN ×3 (00:57→11:29)
[2017-06-05 02:00] VITALS: BP 138/86; RESP 18
[2017-06-05] MEDS: CEFAZOLIN 1 GM/50 ML (PMX) 50 ML IVPB SCH ×2 (05:32→14:06)
[2017-06-05 05:42] LABS: ABNORMAL IP MESSAGE 1; HEMOGLOBIN 12.4 g/dl (12.0-16.0); LYMPHOCYTES # 0.4 10^3/ul (0.8-2.9); LYMPHOCYTES % 7.4 % (15.0-51.0); MEAN CORPUSCULAR HGB CONC 32.6 g/dl (32.0-37.0); MEAN CORPUSCULAR VOLUME 88.8 fl (82.0-101.0); MEAN PLATELET VOLUME 9.4 fl (7.4-10.4); MONOCYTE # 0.1 10^3/ul (0.3-0.9); MONOCYTES % 1.1 % (0.0-11.0); NEUTROPHIL # 4.9 10^3/ul (1.6-7.5); NEUTROPHILS % 90.9 % (39.0-77.0); PLATELET COUNT 316 10^3/UL (140-415); RED BLOOD COUNT 4.28 10^6/ul (4.20-5.40); WHITE BLOOD COUNT 5.4 10^3/ul (4.8-10.8)
[2017-06-05 06:10] LABS: CALCIUM 9.4 mg/dl (8.4-10.2); CREATININE 0.53 mg/dl (0.44-1.00)
[2017-06-05 06:15] LABS: POSITIVE DIFF @See below
[2017-06-05 08:00] VITALS: BP 138/82; RESP 20
[2017-06-05] MEDS: DEXTROSE 5%-0.45% NACL 1,000 ML IV SCH (08:18)
--- NOTE | 2017-06-05 11:32 | PDOCDIS ---
Discharge Instructions CONDITION Patient Condition: Stable HOME CARE INSTRUCTIONS: Diet Instructions: Regular FOLLOW UP/APPOINTMENTS Follow-up Plan 1.Follow up with in 1 week [id number] [facility] [address] [place] [address] Office 2. Follow-up primary care physician in 1 week If you don't have one please let someone know, we can give you resources that may help you pick one. You may also call your insurance company to assign one to you. Review your medication list with your nurse before leaving and if you need new prescriptions please let your nurse know. I may have made changes to your home medications or given you new prescriptions, please let your primary doctor know as well. Stay compliant with your medications and report any side effects to your PCP or pharmacist. Return to the ER if you have any concerns and cannot reach your doctors or call your insurance company, they usually have a nurse that can help you. 3. Call 911 or go to the nearest emergency room if experiencing loss of consciousness, dizziness, chest pain, shortness of breath, vomiting/abdominal pain, speech difficulties, motor weakness or any unusual symptoms. Post operative Instructions *Do not lift anything more than 25 pounds for 6 to 8 weeks *Do not swim or take hot tub bath for 2weeks *Remove dressing and May shower-Use mild soap around site and pat dry *If you notice any oozing, bleeding or other drainage or having fever or chills from site please contact Surgeon's office-If unable to get office, you may go to nearest emergency room NEIL GUERRA NP Jun 05, 2017 11:32
[2017-06-05] MEDS ORDERED: Hydrocodone/Apap (10/325) PO (11:39)
[2017-06-05] MEDS ORDERED: POLYETHYLENE GLYCOL 17 GM PACKET PO SCH (12:00)
[2017-06-05 14:00] VITALS: BP 125/79; RESP 18
--- NOTE | 2017-06-05 14:42 | DS ---
Date/Time of Note Date/Time of Note DATE: 06/05/17 TIME: 14:40 Discharge Summary Admission/Discharge Info Admit Date/Time May 28, 2017 at 19:10 Discharge Date/Time Discharge Diagnosis 1.Gallstone pancreatitis. Resolved. 2. Cholelithiasis/choledocholithiasis . Status post cholecystectomy and ERCP with stone removal Patient Condition: Stable Consults , gastroenterology Dr. Bain, surgery. Procedures 05/31/2017. ERCP with sphincterotomy and stone removal 06/04/2017. Laparoscopic cholecystectomy. Hospital Course This is a 36-year-old female with recent and tubal ligation 2 months ago, gallstones, presented to the emergency room for evaluation of 2 day duration of abdominal pain mostly epigastric and right upper quadrant. Patient also had multiple episodes of nonbilious, nonbloody vomiting. She did not have any fever or chills. Patient was noted with elevated WBC, AST, ALT with right upper quadrant ultrasound showed cholelithiasis with mildly dilated common bile duct. Patient also had elevated lipase level of 14,098. Patient was admitted for further evaluation. She was kept n.p.o. She was treated with IV fluids and pain medications. General surgery and gastroenterology consultation was called. Patient had an MRCP compatible with mild acute pancreatitis, gallstones without cholecystitis and 4 mm filling defect is identified in the distal common duct, concerning for common duct stone without biliary dilatation. On 05/31/2017, patient had undergone ERCP with sphincterotomy and stone removal. Patient tolerated procedure well. Postoperatively, she was continued on pain management. Diet was initiated and she was able to tolerate it. However, patient continued to have right upper quadrant pain requiring removal of gallbladder while she was in hospital. However the recommendation was to wait until lipase level normalized with complete resolve mending pancreatitis. Patient's lipase started to trend down and was normalized. On 06/04/2017, patient had undergone laparoscopic cholecystectomy. Patient tolerated procedure well. Postoperatively, she had very minimal pain. She was able to tolerate diet and activities well. Liver function also was improving. At this time, there is no further inpatient workup indicated and patient is medically stable to be discharged with outpatient follow-up with surgery. Disposition: Patient will be discharged home with outpatient follow-up. Patient verbalized discharge instructions. Approximately 60 minutes was spent in coordinating the discharge on this patient. Patient was seen in collaboration with . Home Meds Active Scripts [Hydrocodone/Apap ()] 1 TAB TAB No Conflict Check, 1 TAB PO Q6H Y for PAIN , #20 TAB Prov:NEIL GUERRA NP 06/05/17 Reported Medications Vit-Iron Fumarate-FA ( Vitamin Tablet) 1 Each Tablet, 1 TAB PO DAILY, TAB 02/11/15 Discontinued Scripts Ibuprofen* (Ibuprofen*) 800 Mg Tablet, 800 MG PO Q8 Y for PAIN, #30 TAB Prov:GOMEZ FERNANDEZ MD 04/06/17 Follow-up Plan 1.Follow up with in 1 week [id number] [facility] [address] [place] [id number] Office 2. Follow-up primary care physician in 1 week If you don't have one please let someone know, we can give you resources that may help you pick one. You may also call your insurance company to assign one to you. Review your medication list with your nurse before leaving and if you need new prescriptions please let your nurse know. I may have made changes to your home medications or given you new prescriptions, please let your primary doctor know as well. Stay compliant with your medications and report any side effects to your PCP or pharmacist. Return to the ER if you have any concerns and cannot reach your doctors or call your insurance company, they usually have a nurse that can help you. 3. Call 911 or go to the nearest emergency room if experiencing loss of consciousness, dizziness, chest pain, shortness of breath, vomiting/abdominal pain, speech difficulties, motor weakness or any unusual symptoms. Post operative Instructions *Do not lift anything more than 25 pounds for 6 to 8 weeks *Do not swim or take hot tub bath for 2weeks *Remove dressing and May shower-Use mild soap around site and pat dry *If you notice any oozing, bleeding or other drainage or having fever or chills from site please contact Surgeon's office-If unable to get office, you may go to nearest emergency room Primary Care Provider Care Physician No Primary Pending Labs Laboratory Tests Test 06/05/17 05:21 White Blood Count 5.410^3/ul (4.8-10.8) Red Blood Count 4.2810^6/ul (4.20-5.40) Hemoglobin 12.4g/dl (12.0-16.0) Hematocrit 38.0% (37.0-47.0) Mean Corpuscular Volume 88.8fl (82.0-101.0) Mean Corpuscular Hemoglobin 29.0pg (29.0-33.0) Mean Corpuscular Hemoglobin Concent 32.6g/dl (32.0-37.0) Red Cell Distribution Width 12.0% (11.5-14.5) Platelet Count 27621^3/UL (140-415) Mean Platelet Volume 9.4fl (7.4-10.4) Neutrophils % 90.9% (39.0-77.0) Lymphocytes % 7.4% (15.0-51.0) Monocytes % 1.1% (0.0-11.0) Eosinophils % 0.0% (0.0-7.0) Basophils % 0.0% (0.0-2.0) Nucleated Red Blood Cells % 0.0/100WBC (0.0-0.0) Neutrophils # 4.910^3/ul (1.6-7.5) Lymphocytes # 0.410^3/ul (0.8-2.9) Monocytes # 0.110^3/ul (0.3-0.9) Eosinophils # 0.010^3/ul (0.0-0.5) Basophils # 0.010^3/ul (0.0-0.1) Nucleated Red Blood Cells # 0.010^3/ul (0.0-0.0) Sodium Level 142mmol/L (135-144) Potassium Level 4.0mmol/L (3.5-5.1) Chloride Level 104mmol/L (97-110) Carbon Dioxide Level 27mmol/L (21-31) Anion Gap 15 (8-16) Blood Urea Nitrogen 3mg/dl (7-20) Creatinine 0.53mg/dl (0.44-1.00) Glucose Level 168mg/dl (70-220) Calcium Level 9.4mg/dl (8.4-10.2) Lipase 215U/L (23-300) NEIL GUERRA NP Jun 05, 2017 14:42
== END 2017-06-05 15:25 | disposition home or self-care (01) | DRG 419 ==
LOC: FTE 14:27 → PP2 19:10
PROVIDERS: ADMIT Internal Medicine; ATTEND Internal Medicine
PROC: 0FC88ZZ Extirpation of Matter from Cystic Duct, Via Natural or Artificial Opening Endoscopic (ICD-10-PCS; 2017-05-31)
PROC: 0FB04ZX Excision of Liver, Percutaneous Endoscopic Approach, Diagnostic (ICD-10-PCS; 2017-06-04)
PROC: 0FT44ZZ Resection of Gallbladder, Percutaneous Endoscopic Approach (ICD-10-PCS; principal; 2017-06-04 14:00)
DX: K85.10 Biliary acute pancreatitis without necrosis or infection (principal); K80.70 Calculus of gallbladder and bile duct without cholecystitis without obstruction; E87.6 Hypokalemia; R94.5 Abnormal results of liver function studies
CPT/HCPCS: 36415; 74181; 74330; 76705; 76830; 76856; 80048; 80053; 80076; 81001; 82150; 83690; 83735; 84100; 84702; 84703; 85025; 88304; 88307; 88313; 96374; 96375; 96376; J0131; J0690; J1100; J1170; J1885; J1956; J2060; J2175; J2270; J2405; J2710; J2765; J3010; J3480; J7030; J7042; J7999

== ENCOUNTER 2018-06-01 13:12 | Emergency (ER) | END 2018-06-01 19:32 | disposition home or self-care (01) ==

== ENCOUNTER 2019-05-09 19:05 | Emergency (ER) | payer MEDICAID ==
[~2019-05-09] VITALS: Ht 162.6 cm; Wt 78.8 kg
[~2019-05-09 19:05] MED LIST changes: +Hydrocodone/Apap (10/325) PO; +IBUP-1542 PO; -IBUP800T25 PO; +IBUP800T48 PO; +ONDA4TAB14 PO
[2019-05-09 19:08] VITALS: Ht 162.6 cm; Wt 78.8 kg
[2019-05-09] MEDS ORDERED: ONDANSETRON 4 MG INJ IV STA (19:29)
[2019-05-09] MEDS ORDERED: morphine 4 MG/ML VIAL IV STA (19:29)
[2019-05-09 19:52] VITALS: BP 133/94; PULSE 60; RESP 19
== END 2019-05-09 22:47 | disposition home or self-care (01) ==
LOC: E/R 19:05
DX: R10.13 Epigastric pain (principal)
CPT/HCPCS: 36415; 80053; 81001; 83690; 84703; 85025; 96374; 96375; J2270; J2405; Z7502